=== PATIENT | male | born 1960 | race Caucasian/White ===

== ENCOUNTER 2024-10-13 22:43 | Emergency (ER) | payer OTHER, SELFPAY ==
[2024-10-13 22:48] VITALS: BP 121/84
[2024-10-13] MEDS: ZOFRAN 4 MG IV (23:37)
[2024-10-13] MEDS: MORPHINE SULFATE 4 MG IV (23:37)
[2024-10-13 23:38] VITALS: BMI 27.9
--- NOTE | 2024-10-13 23:52 | ED.GENMED ---
History of Present Illness
<SOFÍA Sousa - Last Filed: 10/14/24 03:22>
General
Chief Complaint: Musculo-Skeletal Complaint
Source: patient
Time Seen by Provider: 10/13/24 23:11
Nursing documentation reviewed up to this point in time: agreed with
History of Present Illness
History of Present Illness:
Pt is a 64 yo M with a history of a-fib who presents to the emergency department with left shoulder pain after a fall onto the tile floor this evening. Pt states that he was walking to let the dog out and fell onto his left side and landed on his
left shoulder. He states that he 'hit everything' on his body when he fell. Pt reports that he was on the floor for about 30 minutes before he was helped up. He states that he wet himself while he was on the floor waiting for help. Pt states that he
was helped and lifted up, and that he was able to walk to the car to come to the ED. He reports that the left shoulder pain is extreme. He denies LOC, dizziness, headache, N/V, changes in vision.
Patient's states that the patient currently takes baby aspirin, denies taking any blood thinners. Patient's states that the patient drank wine today.
Past History
<SOFÍA Sousa - Last Filed: 10/14/24 03:22>
Past History
ED Past Medical History: Other (Back pain) and Other (Previous splenic injury and hand surgery for,.)
Patient has exhibited threatening behavior?: No
Social History
Tobacco: Non-smoker
Alcohol: None
Drug: None
Personal:
Living: with family
Employment: Employed
Family History
Family History: Other
Review of Systems
<SOFÍA Sousa - Last Filed: 10/14/24 03:22>
Review of Systems
Allergies reviewed?: Yes
Constitutional: Reports no symptoms
Respiratory: Reports no symptoms
Cardiac: Reports no symptoms
ABD/GI: Reports no symptoms
Musculoskeletal: Reports joint pain
Neurological: Reports no symptoms
Phy Exam
<Allie Sosa STAN - Last Filed: 10/14/24 03:22>
General Physical Exam
General Presentation: moderate distress
General age: appears stated age
General Skin: warm
General Habitus: normal
General Mental: angry
General Hydration: appears well hydrated
Cardiovascular Exam
Cardiovascular Exam: regular rate/rhythm
Pulmonary Exam
Pulmonary Exam: lungs clear
Neurological Exam
Neurological Exam: alert, oriented x3 and speech normal
Musculoskeletal Exam
Musculoskeletal Exam: other (left shoulder pain, limited ROM of left shoulder)
Skin Exam
Skin Exam: other (Left anterior forearm abrasion )
Course
<Allie Sosa [facility] - Last Filed: 10/14/24 03:22>
Orders/Labs/Results
Orders:
Orders
10/13/24 22:56
CR Shoulder - Left Min 2 View* Urgent
Reason For Exam: fall, c/f dislocation
10/13/24 23:25
Morphine Sulfate 4 mg IV NOW STA
Ondansetron Injectable [Zofran] 4 mg IV NOW STA
10/14/24 00:32
HYDROmorphone [Dilaudid] 0.5 mg IV NOW STA
10/14/24 00:42
Propofol [Diprivan] 20 ml .ROUTE .STK-MED
10/14/24 01:11
CR Shoulder - Left 1 View Urgent
Reason For Exam: post reduction
10/14/24 02:09
CR Shoulder - Left 1 View Urgent
Reason For Exam: continued shoulder pain post reduction
Vital Signs
Initial and Last Documented VS:
Initial Vital Signs
Temp Pulse Resp BP Pulse Ox
98.0 F 100 20 121/84 99
10/13/24 22:48 10/13/24 22:48 10/13/24 22:48 10/13/24 22:48 10/13/24 22:48
Last Documented Vital Signs
Temp Pulse Resp BP Pulse Ox
97.9 F 84 18 109/80 95
10/14/24 01:50 10/14/24 01:50 10/14/24 01:50 10/14/24 01:50 10/14/24 01:50
<Amado Bender, DO - Last Filed: 10/14/24 02:39>
Orders/Labs/Results
Orders:
Orders
10/13/24 22:56
CR Shoulder - Left Min 2 View* Urgent
Reason For Exam: fall, c/f dislocation
10/13/24 23:25
Morphine Sulfate 4 mg IV NOW STA
Ondansetron Injectable [Zofran] 4 mg IV NOW STA
10/14/24 00:32
HYDROmorphone [Dilaudid] 0.5 mg IV NOW STA
10/14/24 00:42
Propofol [Diprivan] 20 ml .ROUTE .STK-MED
10/14/24 01:11
CR Shoulder - Left 1 View Urgent
Reason For Exam: post reduction
10/14/24 02:09
CR Shoulder - Left 1 View Urgent
Reason For Exam: continued shoulder pain post reduction
Vital Signs
Initial and Last Documented VS:
Initial Vital Signs
Temp Pulse Resp BP Pulse Ox
98.0 F 100 20 121/84 99
10/13/24 22:48 10/13/24 22:48 10/13/24 22:48 10/13/24 22:48 10/13/24 22:48
Last Documented Vital Signs
Temp Pulse Resp BP Pulse Ox
97.9 F 84 18 109/80 95
10/14/24 01:50 10/14/24 01:50 10/14/24 01:50 10/14/24 01:50 10/14/24 01:50
Procedures
<DO Rafa Harkins Last Filed: 10/14/24 02:39>
Moderate Sedation
ASA Risk Score: Class II
Chart and allergies reviewed: Yes
Consent for anesthesia obtained: Yes
Time out completed (validating right patient & procedure): Yes
Moderate Sedation Start Time(when first medication is given): 01:05
History of difficult intubation: No
Airway free of obstruction: Yes
Patient has a gag reflex: Yes
Patient is able to open mouth: Yes
Patient has no dentures: Yes
Patient has no loose teeth: Yes
Medication administered by Provider during Moderate Sedation: IV Propofol (mg)
Total dose administered: 75
Time drug administered: 01:05
Moderate Sedation Procedure End Time: 01:20
Joint/Fracture Reduction
Left Shoulder:
Indication for procedure:: dislocation
Procedure completed by: myself
Consent form signed: Yes
Joint reduced: with anesthesia sedation
Anesthesia/sedation: Moderate sedation
Injury was: closed
Further treatement: needs re-check only
Post reduction exam: stable
Capillary Refill: normal
Normal distal neurovascular exam?: Yes
Additional information:
Patient tolerated procedure well with no immediate adverse effects.
<SOFÍA Sousa - Last Filed: 10/14/24 03:22>
MDM/Problems Addressed
Differential Diagnosis Includes:
Humerus fracture, humeral dislocation
<SOFÍA Sousa - Last Filed: 10/14/24 03:22>
*Critical Care Note
Total Time (30-74mins, 75-104mins- exclusive of procedures): Not Applicable
<DO Rafa Harkins Filed: 10/14/24 02:39>
Update Note
Update Note:
10/14/2024 0137 AM: Patient is awake alert and oriented at this time. We did readdress the CT of the head. He is refusing. I am concerned because he has a large hematoma on the side of his head. Patient is coherent and able to understand the
risks and benefits of refusal. I asked him to sign a procedure refusal form and he agreed. This is all done in the presence of and son.
10/14/2024 0210 AM signed consent form regarding refusal of CT scan of the head. absolutely refused. Patient still complaining of left shoulder pain. Will re-xray the shoulder formally.
ED Attending Note
<SOFÍA oSusa - Last Filed: 10/14/24 03:22>
-
Portions of this chart may have been created with voice recognition software.� Occasional wrong word or��sound alike� substitutions may have occurred due to the inherent limitations of voice recognition software.
<Amado Bender DO - Last Filed: 10/14/24 02:39>
ED Attending Note
Patient seen and examined by attending physician: Yes
I performed the substantive portion of visit, reviewed & personally made and approve the management plan that is documented in note by myself or SREEKANTH.: Yes
ED Attending Note:
64-year-old male presents to the emergency department with left shoulder dislocation. Patient slipped and fell on a tile floor hitting his head and injuring his left shoulder. Patient states that he laid on the floor for approximately 30 minutes
before he was helped up. Patient did admit to drinking alcohol. Patient refused CAT scan stating that his shoulder hurt too much.
Discharge Plan
Departure
Patient Disposition: Home (Routine Discharge)
Date of Disposition: 10/14/24
Time of Disposition: 02:39
Patient with high blood pressure during this ER visit?: Yes
Discharge Problem:
Dislocated shoulder, Head injury, Acromioclavicular joint separation
Instructions: Shoulder Dislocation (DC), shoulder, How to Use a Shoulder Sling, BLOOD PRESSURE
Prescriptions:
New
oxycodone-acetaminophen [Percocet] 5-325 mg tablet
1 tab PO Q8H PRN (Reason: Pain) Qty: 10 0RF
No Action
Vitamin C
1 tab PO DAILY
Vitamin D
1 tab PO DAILY
rivaroxaban [Xarelto] 20 MG tablet
20 mg PO QPM Qty: 14 0RF
diltiazem HCl [Cardizem CD] 120 MG capsule,extended release 24hr
120 mg PO DAILY Qty: 14 0RF
colchicine 0.6 mg capsule
0.6 mg PO DAILY Qty: 5 0RF
prednisone 10 mg tablet
10 mg PO DAILY Qty: 30 0RF
acetaminophen-codeine 1 TABLET tablet
1 - 2 tab PO Q4HPRN PRN (Reason: Mod-severe pain) Qty: 30 0RF
Referrals:
Seamus Rivera MD [Family Provider] -
Alfa Osorio MD [Active] - Next open appointment
Activity Restrictions/Additional Instructions:
It was a pleasure meeting you and taking part in your care. We hope for your continued healing and wellness.
Please read discharge instructions in their entirety. However, they are for general education and may not describe your exact diagnosis at discharge. Information on your ER visit and medical conditions were discussed with you along with appropriate
follow up information...
If indicated, please take your medications as instructed and indicated on discharge paperwork.
Please schedule a follow up appointment as directed. Call to schedule an appointment
Please return to the emergency department with ANY change in, persisting, or worsening of symptoms. If any of your symptoms do not improve, or persist, or become more severe within 6-12 hours, please return to the emergency department for further
care.
Please return to the emergency department if you develop a headache, neck pain/stiffness, fever greater than 100.4F, chest pain, shortness of breath, persistent nausea, vomiting, slurred speech, difficulty walking, numbness/tingling, weakness, signs
of infection or any other symptoms that are worrisome to you.
If you have any questions or concerns please do not hesitate to call the Hospital at
Interventions
Interventions:
*General Assessment Last Done: 10/14/24 00:25
*Neglect/Abuse Screening Last Done: 10/13/24 22:48
ED- Fall Risk Assessment Last Done: 10/14/24 02:56
*ED COVID-19 Vaccine History Last Done: 10/13/24 22:48
*Nursing Disposition Last Done: 10/14/24 02:56
ED-Musculoskeletal Assessment Last Done: 10/14/24 00:25
Discharge Date and Time
Discharge Date/Time: 10/14/24 02:56
Print Language: KHMER
[2024-10-14] VITALS (9 sets, daily range): BP systolic 93–109; BP diastolic 59–88
[2024-10-14] MEDS: DILAUDID 0.5 MG IV (00:35)
== END 2024-10-14 02:56 | disposition home or self-care (01) ==
LOC: EMR 22:43
PROVIDERS: EMERGENCY PHYSICIAN Student in an Organized Health Care Education/Training Program; FAMILY PHYSICIAN Internal Medicine
DX: S43.015A Anterior dislocation of left humerus, initial encounter (principal); S09.90XA Unspecified injury of head, initial encounter; W19.XXXA Unspecified fall, initial encounter
CPT/HCPCS: 99283; 23650; 99152; 73020; 73030

== ENCOUNTER → 2024-12-21 11:07 | Outpatient (REF) | payer OTHER, SELFPAY | LOC: HWRAD 11:07 | PROVIDERS: ATTENDING PHYSICIAN Dermatology; FAMILY PHYSICIAN Nurse Practitioner Family; REFERRING PHYSICIAN Specialist | DX: N50.812 Left testicular pain (principal); D48.5 Neoplasm of uncertain behavior of skin; D89.89 Other specified disorders involving the immune mechanism, not elsewhere classified | CPT/HCPCS: 71046; 76870; 93976 ==

== ENCOUNTER 2025-01-02 15:28 | Emergency (ER) | payer OTHER, SELFPAY ==
[2025-01-02 15:46] VITALS: BP 122/79
[2025-01-02 16:26] LABS: ALT (SGPT) 43 U/L (0-50); AST (SGOT) 49 U/L (17-59); Albumin 4.4 g/dl (3.5-5.0); Alkaline Phosphatase 79 U/L (38-126); Blood Urea Nitrogen 17 mg/dl (9-20); Calcium 9.6 mg/dl (8.4-10.2); Carbon Dioxide 28 mmol/L (22-30); Chloride 102 mmol/L (98-107); Glucose 126 mg/dl (70-99); Potassium 5.1 mmol/L (3.5-5.1); Sodium 138 mmol/L (135-145); Total Bilirubin 0.8 mg/dl (0.2-1.3); Total Protein 6.2 g/dl (6.3-8.2); eGFR > 60.00
[2025-01-02 16:28] LABS: % Basophils 1.6 % (0-2); % Eosinophils 0.8 % (0-6); % Immature Granulocytes 2.5 % (0-0.5); % Lymphocytes 17.2 % (20.5-51.1); % Monocytes 13.4 % (1.7-9.3); % Neutrophils 64.5 % (42.2-75.2); Absolute Basophils 0.1 10^3/uL (0-0.2); Absolute Immature Granulocytes 0.1 10^3/uL (0-0.05); Absolute Lymphocytes 0.6 10^3/uL (1.2-3.4); Absolute Monocytes 0.5 10^3/uL (0.1-0.6); Absolute Neutrophils 2.4 10^3/uL (1.4-6.5); Hematocrit 33.5 % (39.0-52.0); Hemoglobin 10.9 g/dL (13.0-18.0); Mean Corp Hgb Conc. 32.5 g/dL (33.0-37.0); Mean Corpuscular Hgb 35.4 pg (27.0-31.0); Mean Corpuscular Volume 108.8 fL (80.0-94.0); Mean Platelet Volume 12.4 fL (7.4-10.4); Nucleated Red Blood Cells % 0 % (-); Platelet Count 116 10^3/uL (130-400); Red Blood Cell Count 3.08 10^6/uL (4.70-6.10); Red Cell Dist. Width 16.6 % (11.5-14.5); White Blood Cell Count 3.7 10^3/uL (4.8-10.8)
[2025-01-02 16:29] LABS: Hypochromasia Moderate; Normal RBC Morphology No; Stomatocytes 1+
[2025-01-02] MEDS: PERCOCET 5/325 1 TABLET PO (17:43)
--- NOTE | 2025-01-02 17:46 | ED.GENMED ---
History of Present Illness
General
Chief Complaint: Male Genito-Urinary Symptoms
Source: patient
Time Seen by Provider: 01/02/25 17:32
History of Present Illness
History of Present Illness:
64-year-old male with past medical history of atrial fibrillation presenting to the emergency department for evaluation of worsening pain to bilateral testes/scrotum, was seen as an outpatient 1 week ago and had an ultrasound done which showed
bilateral hydroceles, no change to symptoms today but noting persistent pain. Patient attempted to follow-up with urology but was not able to be seen until April and was advised by primary care provider to come back to the emergency department today
for further evaluation. Other than the pain patient denies any symptoms including urinary frequency, urgency, dysuria, hematuria, back or flank pain. Denies any other history of similar. No other concerns.
Past History
Past History
ED Past Medical History: Other (Back pain) and Other (Previous splenic injury and hand surgery for,.)
Patient has exhibited threatening behavior?: No
Social History
Tobacco: Non-smoker
Alcohol: None
Drug: None
Personal:
Living: with family
Employment: Employed
Family History
Family History: Other
Review of Systems
Review of Systems
All Other Systems: ROS reviewed and negative except as documented in HPI and ROS
Phy Exam
Physical Exam
Physical Exam:
GENERAL: Alert , in no apparent distress
EYE: conjunctiva clear
Head: Normocephalic atraumatic
NECK: Supple,
ENT: mmm.
LUNGS: no acute respiratory distress
GENITOURINARY: Moderate to large scrotal edema bilaterally. No discrete tenderness over the testicle. No overlying erythema. No lesions or sores. Positive cremasteric reflex bilateral. No urethral discharge
NEUROLOGICAL: Alert and oriented
SKIN: Warm and dry, skin intact.
MUSCULOSKELETAL: well perfused.
PSYCH: Normal and appropriate interaction.
Scores
Heart Failure Risk
Heart Failure Risk Score: Not Applicable
Heart Score for Chest Pain Patients
STEMI patient?: Not applicable
Withdrawal Assessment of Alcohol
Withdrawal Assessment Completed?: Not applicable
Course
Orders/Labs/Results
Orders:
Orders
01/02/25 15:51
Scrotum US [US Scrotum] Urgent
Comment: increasing in severity
Reason For Exam: left testicle pain and swelling for past 2 weeks
01/02/25 15:59
Complete Blood Count/With Diff Urgent
Comprehensive Metabolic Panel Urgent
01/02/25 17:37
Oxycodone/Acetaminophen [Percocet 5/325] 1 tablet PO NOW STA
01/02/25 17:40
Urinalysis Reflex To Culture Urgent
Date Specimen was Collected: 01/02/25
Time Specimen was Collected: 17:37
Abnormal Lab Results
01/02/25
15:59
WBC 3.7 L 10^3/uL
(4.8-10.8)
RBC 3.08 L 10^6/uL
(4.70-6.10)
Hgb 10.9 L g/dL
(13.0-18.0)
Hct 33.5 L %
(39.0-52.0)
MCV 108.8 H fL
(80.0-94.0)
MCH 35.4 H pg
(27.0-31.0)
MCHC 32.5 L g/dL
(33.0-37.0)
RDW 16.6 H %
(11.5-14.5)
Plt Count 116 L 10^3/uL
(130-400)
MPV 12.4 H fL
(7.4-10.4)
Abs Immat Gran (auto) 0.1 H 10^3/uL
(0-0.05)
Absolute Lymphs (auto) 0.6 L 10^3/uL
(1.2-3.4)
Immature Gran % 2.5 H %
(0-0.5)
Lymphocytes % 17.2 L %
(20.5-51.1)
Monocytes % 13.4 H %
(1.7-9.3)
Glucose 126 H mg/dl
(70-99)
Total Protein 6.2 L g/dl
(6.3-8.2)
01/02/25 15:59
01/02/25 15:59
Vital Signs
Initial and Last Documented VS:
Initial Vital Signs
Temp Pulse Resp BP Pulse Ox
97.6 F 114 18 122/79 100
01/02/25 15:46 01/02/25 15:46 01/02/25 15:46 01/02/25 15:46 01/02/25 15:46
Last Documented Vital Signs
Temp Pulse Resp BP Pulse Ox
97.6 F 99 16 135/96 97
01/02/25 15:46 01/02/25 18:20 01/02/25 18:20 01/02/25 18:20 01/02/25 18:20
MDM/Problems Addressed
Differential Diagnosis Includes:
Hydrocele versus varicocele, torsion, cellulitis, urinary tract infection, orchitis
MDM/Problems Addressed:
64-year-old male presenting the ER for evaluation of bilateral scrotal edema, recently diagnosed with bilateral hydroceles, unable to see urology until April. Recommended to come back to the ER this evening. Labs, urinalysis and scrotal ultrasound
ordered. Disposition pending. Will contact urology
*Radiology
Radiology exam reviewed: radiology read reviewed
*Pulse Oximetry
Patient hypoxic: no
*Critical Care Note
Total Time (30-74mins, 75-104mins- exclusive of procedures): Not Applicable
Patient Management
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
Escalation/DeEscalation of care consider admission/obs:
Case discussed with urology who states that they will have patient's provider contacted to try and expedite patient's outpatient visit. In the meantime we will prescribe patient pain medicine to take at home as needed. Return precautions
discussed. Stable for discharge home.
ED Attending Note
-
Portions of this chart may have been created with voice recognition software.� Occasional wrong word or��sound alike� substitutions may have occurred due to the inherent limitations of voice recognition software.
Discharge Plan
Departure
Patient Disposition: Home (Routine Discharge)
Date of Disposition: 01/02/25
Time of Disposition: 17:50
Patient with high blood pressure during this ER visit?: No
Discharge Problem:
Bilateral hydrocele
Instructions: Hydrocele/Varicocele (DC)
Prescriptions:
New
oxycodone-acetaminophen [Percocet] 5-325 mg tablet
1 tab PO Q6HPRN PRN (Reason: pain) Qty: 6 0RF
No Action
Vitamin C
1 tab PO DAILY
Vitamin D
1 tab PO DAILY
rivaroxaban [Xarelto] 20 MG tablet
20 mg PO QPM Qty: 14 0RF
diltiazem HCl [Cardizem CD] 120 MG capsule,extended release 24hr
120 mg PO DAILY Qty: 14 0RF
colchicine 0.6 mg capsule
0.6 mg PO DAILY Qty: 5 0RF
prednisone 10 mg tablet
10 mg PO DAILY Qty: 30 0RF
oxycodone-acetaminophen [Percocet] 5-325 mg tablet
1 tab PO Q8H PRN (Reason: Pain) Qty: 10 0RF
acetaminophen-codeine 1 TABLET tablet
1 - 2 tab PO Q4HPRN PRN (Reason: Mod-severe pain) Qty: 30 0RF
Interventions
Interventions:
*Risk Screen - Suicide Last Done: 01/02/25 17:16
*General Assessment Last Done: 01/02/25 17:16
*Neglect/Abuse Screening Last Done: 01/02/25 17:16
ED- Fall Risk Assessment Last Done: 01/02/25 18:20
*ED COVID-19 Vaccine History Last Done: 01/02/25 17:16
*Nursing Disposition Last Done: 01/02/25 18:20
ED-Male Genitourinary Assessment Last Done: 01/02/25 17:16
Discharge Date and Time
Discharge Date/Time: 01/02/25 18:26
Print Language: MALIAN
[2025-01-02 17:48] LABS: Urine Albumin Negative (Neg - Trace); Urine Bilirubin Negative (Negative); Urine Character Clear (Clear); Urine Color Yellow; Urine Glucose Negative (Negative); Urine Ketone Negative (Negative); Urine Leukocyte Negative (Negative); Urine Nitrite Negative (Negative); Urine Occult Blood Negative (Negative); Urine Urobilinogen Negative (Neg - 1+)
[2025-01-02 18:20] VITALS: BP 135/96
== END 2025-01-02 18:26 | disposition home or self-care (01) ==
LOC: EMR 15:28
PROVIDERS: Physician Assistant Medical; EMERGENCY PHYSICIAN Emergency Medicine; FAMILY PHYSICIAN Nurse Practitioner Family
DX: N43.3 Hydrocele, unspecified (principal); I48.91 Unspecified atrial fibrillation
CPT/HCPCS: 99284; 76870; 80053; 81003; 85025; 93976

== ENCOUNTER → 2025-02-16 14:02 | Outpatient (REF) | payer OTHER, SELFPAY | LOC: HWRAD 14:02 | PROVIDERS: FAMILY PHYSICIAN Nurse Practitioner Family | DX: M16.12 Unilateral primary osteoarthritis, left hip (principal); M25.552 Pain in left hip; Z47.1 Aftercare following joint replacement surgery; Z96.642 Presence of left artificial hip joint | CPT/HCPCS: 73700 ==

== ENCOUNTER 2025-06-08 22:50 | Inpatient (IN) | payer OTHER, SELFPAY ==
[2025-06-08] VITALS (8 sets, daily range): BP systolic 101–131; BP diastolic 57–87
[2025-06-08 12:15] LABS: INR 1.11; PT 14.8 Sec (11.4-14.6)
[2025-06-08 12:16] LABS: APTT 34.1 Sec (23.4-35.0)
[2025-06-08 12:17] LABS: Hematocrit 31.2 % (39.0-52.0); Hemoglobin 10.0 g/dL (13.0-18.0); Mean Corp Hgb Conc. 32.1 g/dL (33.0-37.0); Mean Corpuscular Volume 98.4 fL (80.0-94.0); Nucleated Red Blood Cells % 0 % (-); Red Cell Dist. Width 23.1 % (11.5-14.5)
[2025-06-08 12:21] LABS: ALT (SGPT) 16 U/L (0-50); AST (SGOT) 25 U/L (17-59); Albumin 4.2 g/dl (3.5-5.0); Alkaline Phosphatase 60 U/L (38-126); Blood Urea Nitrogen 12 mg/dl (9-20); Calcium 9.4 mg/dl (8.4-10.2); Carbon Dioxide 22 mmol/L (22-30); Chloride 105 mmol/L (98-107); Glucose 101 mg/dl (70-99); Potassium 4.4 mmol/L (3.5-5.1); Sodium 136 mmol/L (135-145); Total Protein 6.3 g/dl (6.3-8.2); eGFR > 60.00
[2025-06-08 12:29] LABS: Troponin I 0.018 ng/ml
[2025-06-08 12:34] LABS: Platelet Count 84 10^3/uL (130-400)
--- NOTE | 2025-06-08 13:11 | ED.GENMED ---
History of Present Illness
General
Chief Complaint: Musculo-Skeletal Complaint
Time Seen by Provider: 06/08/25 11:12
History of Present Illness
History of Present Illness:
65-year-old male presents to the ER for evaluation of generalized weakness, fatigue, low back pain and incontinence since Thursday. Patient states that he had been feeling well over the weekend. They had traveled to help a family member. He was
loading up his truck when he felt so profoundly weak he felt as though he was having trouble with his strength to move his arms to load the truck. He states that on his way home he had 2 episodes of diarrhea and subsequent emesis. He states that
since this time he has been feeling feverish and severely fatigued. He states that he has mild hip discomfort status post complicated hip surgery earlier this year-he had hip replacement and subsequent infection causing need for revision. He
states that on Thursday night he had a lack of awareness that he needed to void and had several episodes of incontinence. He states that he is able to have awareness of his need to void if he is laying supine, however he has no control of his
ability to empty his bladder and has had to have a bucket at his bedside. He states he has continued to have occasional loose stools. He also had a feeling of chest heaviness earlier today
Past History
Past History
ED Past Medical History: Other (Back pain) and Other (Previous splenic injury and hand surgery for,.)
Patient has exhibited threatening behavior?: No
Social History
Tobacco: Non-smoker
Alcohol: None
Drug: None
Personal:
Living: with family
Employment: Employed
Family History
Family History: Other
Phy Exam
Physical Exam
Physical Exam:
Patient is awake, alert, mild conversational dyspnea, appears older than stated age, mucous membranes moist, conjunctiva pink, patient has a diffuse macular nonblanching fine rash with areas of confluence across his chest and back, heart irregularly
irregular rate and rhythm without murmur, lungs are clear to auscultation without wheezes rales or rhonchi, abdomen is soft and nontender without murmur, lungs are clear to auscultation without wheezes rales or rhonchi, abdomen is soft and
nontender, rectal exam reveals intact perianal sensation with good rectal tone, intact sensation to light touch symmetric bilateral lower extremities, moving all extremities symmetrically without focal deficit although patient reports feeling
fatigued with movement of all extremities, GCS is 15
Sepsis
Sepsis Screening
Sepsis Assessment: Sepsis
Sepsis Screen
Sepsis Screen: Sepsis
Date: 06/08/25
Time: 15:16
Course
Orders/Labs/Results
Orders:
Orders
06/08/25 11:31
Bladder Scan- Treatment ONCE
06/08/25 11:38
CR Chest - 2 Views Urgent
Comment:
Reason For Exam: chest pain
06/08/25 11:45
Electrocardiogram (*1) Q3H
Reason for Study: Chest Pain
EKG- Treatment ONCE
06/08/25 11:48
Complete Blood Count/With Diff Urgent
Comprehensive Metabolic Panel Urgent
Lactic Acid Q4H
Comment: CANCEL 2nd LACTIC ACID IF 1st LACTIC ACID IS LESS THAN 2
PTT Urgent
Prothrombin Time Urgent
Troponin I Q3H
Blood Culture Q30M
JAJA Source: Blood/Venous
Specimen Description:
Blood Culture Q30M
JAJA Source: Blood/Venous
Specimen Description:
06/08/25 12:28
MR Lumbar W/o & With Contrast Urgent
Comment:
Reason For Exam: back pain, r/o epidural abscess
Recent pill cam endoscopy?: No
06/08/25 13:34
Urinalysis Reflex To Culture Urgent
Date Specimen was Collected: 06/08/25
Time Specimen was Collected: 13:34
Urine Microscopic Reflex Cult Urgent
Urine Culture Urgent
JAJA Source: U
Specimen Description:
Obtained by: Random
Date Specimen was Collected: 06/08/25
Time Specimen was Collected: 13:34
06/08/25 13:56
CT Chest/abd/pel Wo Iv Cont Urgent
Comment:
Reason For Exam: fever, h/o severe contrast allergy
06/08/25 14:45
Electrocardiogram (*1) Q3H
Reason for Study: Chest Pain
Troponin I Q3H
06/08/25 14:49
Metoprolol [Lopressor] 5 mg IV NOW STA
06/08/25 14:53
0.9% Sodium Chloride 1000 ml [Nss] 1,000 ml IV BOLUS
06/08/25 15:13
Aztreonam [Azactam] 2,000 mg IV NOW STA
06/08/25 15:15
Lactic Acid Q4H
Comment: CANCEL 2nd LACTIC ACID IF 1st LACTIC ACID IS LESS THAN 2
Abnormal Lab Results
06/08/25 06/08/25
11:48 13:34
WBC 2.6 L 10^3/uL
(4.8-10.8)
RBC 3.17 L 10^6/uL
(4.70-6.10)
Hgb 10.0 L g/dL
(13.0-18.0)
Hct 31.2 L %
(39.0-52.0)
MCV 98.4 H fL
(80.0-94.0)
MCH 31.5 H pg
(27.0-31.0)
MCHC 32.1 L g/dL
(33.0-37.0)
RDW 23.1 H %
(11.5-14.5)
Plt Count 84 L 10^3/uL
(130-400)
Absolute Lymphs (auto) 0.3 L 10^3/uL
(1.2-3.4)
Immature Gran % 1.2 H %
(0-0.5)
Lymphocytes % 13.3 L %
(20.5-51.1)
Monocytes % 12.5 H %
(1.7-9.3)
PT 14.8 H Sec
(11.4-14.6)
Glucose 101 H mg/dl
(70-99)
Total Bilirubin 1.5 H mg/dl
(0.2-1.3)
Ur Occult Blood Reflex 1+ A
(Negative)
Urine Nitrite (Reflex) Positive A
(Negative)
Leukocyte Esterase Rfl 3+ A
(Negative)
Urine RBC 3-6 A /HPF
(0-2)
Urine WBC (Reflex) 16-20 A /HPF
(0-5)
Urine Bacteria (Reflex) Moderate A
(Negative)
Urine Albumin (Reflex) 2+ A
(Neg - Trace)
06/08/25 11:48
06/08/25 11:48
CBC reveals low white blood count, 2.6 today had been 3.7 in December. Hemoglobin also low at 10, similar to prior value. Platelet count 84, . Kidney function preserved. Electrolytes within normal limits. Troponin just above normal at 0.018.
Will repeat.
Vital Signs
Initial and Last Documented VS:
Initial Vital Signs
Temp Pulse Resp BP Pulse Ox
97.8 F 131 20 127/87 99
06/08/25 10:57 06/08/25 10:57 06/08/25 10:57 06/08/25 10:57 06/08/25 10:57
Last Documented Vital Signs
Temp Pulse Resp BP Pulse Ox
97.8 F 107 22 108/67 98
06/08/25 10:57 06/08/25 15:01 06/08/25 15:01 06/08/25 15:01 06/08/25 15:01
MDM/Problems Addressed
Differential Diagnosis Includes:
Differential diagnosis to consider but not limited to epidural abscess, bacteremia, UTI along with other etiologies considered
Chronic conditions affecting care:
Myelodysplastic syndrome nos (pt reports that 2 of his cell lines are always low), afib on chronic anticoagulation, h/o septic arthritis s/p hip repair
*Radiology
Radiology exam reviewed: radiology read reviewed (Chest x-ray within normal limits)
*Pulse Oximetry
SaO2: 99
Oxygen Mode of Delivery: Room air
Patient hypoxic: no
*EKG
Interpreted by ED Provider?: Yes (I independently viewed and interpreted twelve-lead EKG showing atrial fibrillation with a controlled rate, leftward axis, incomplete right bundle branch block, no ST elevation, this is an abnormal tracing similar to
prior from 09/29/2014 with exception of rate)
*Hat Liner Interpretation
Rate: normal
Interpretation: abnormal
Rhythm: a-fib
*Critical Care Note
Total Time (30-74mins, 75-104mins- exclusive of procedures): 30 minutes
comment:
30 minutes of critical care time utilized in managing this medically complex patient
Update Note
Update Note:
After my initial assessment, given patient's history of severe IV contrast allergy along with clinical concern for possible epidural infection as etiology of symptoms given complicated orthopedic course within the past year, I reviewed full patient
presentation with on-call radiologist. Patient is approved for MRI of the lumbar spine with and without IV contrast.
update 1350-patient resting comfortably, feels well. Declining any need for analgesia at the current time.
Patient had elevated heart rate-gambling monitor shows A-fib with RVR up to 120s. Blood pressure stable. Patient did take his morning metoprolol. Additional IV metoprolol ordered. By the time nurse went to administer, patient's heart rate was
back in the 90s. Will hold metoprolol. IV fluids ordered. IV aztreonam ordered for urinalysis consistent with UTI. Awaiting CT and MRI for disposition. Full patient presentation reviewed with Dr Campos at end of my shift pending results for
admission
ED Attending Note
-
Portions of this chart may have been created with voice recognition software.� Occasional wrong word or��sound alike� substitutions may have occurred due to the inherent limitations of voice recognition software.
Discharge Plan
Departure
Discharge Problem:
Atrial fibrillation, Urinary tract infection, Weakness
Prescriptions:
No Action
Vitamin C
1 tab PO DAILY
Vitamin D
1 tab PO DAILY
rivaroxaban [Xarelto] 20 MG tablet
20 mg PO QPM Qty: 14 0RF
diltiazem HCl [Cardizem CD] 120 MG capsule,extended release 24hr
120 mg PO DAILY Qty: 14 0RF
colchicine 0.6 mg capsule
0.6 mg PO DAILY Qty: 5 0RF
prednisone 10 mg tablet
10 mg PO DAILY Qty: 30 0RF
oxycodone-acetaminophen [Percocet] 5-325 mg tablet
1 tab PO Q8H PRN (Reason: Pain) Qty: 10 0RF
oxycodone-acetaminophen [Percocet] 5-325 mg tablet
1 tab PO Q6HPRN PRN (Reason: pain) Qty: 6 0RF
acetaminophen-codeine 1 TABLET tablet
1 - 2 tab PO Q4HPRN PRN (Reason: Mod-severe pain) Qty: 30 0RF
Referrals:
Yvon Lima CRNP [Family Provider, Family Practice]
Interventions
Interventions:
*Risk Screen - Suicide Last Done: 06/08/25 10:57
*Neglect/Abuse Screening Last Done: 06/08/25 10:57
*ED- Fall Risk Assessment Last Done: 06/08/25 10:57
ED-Musculoskeletal Assessment Last Done: 06/08/25 12:52
Discharge Date and Time
Print Language: MEXICAN
[2025-06-08 13:46] LABS: Urine Character Slightly Cloudy (Clear)
[2025-06-08 14:13] LABS: Urine White Cell 16-20 /HPF (0-5)
[2025-06-08] MEDS: NSS 1000 IV ×2 (15:47→23:16)
[2025-06-08] MEDS: AZACTAM 2000 MG IV (15:48)
[2025-06-08] MEDS: LOPRESSOR 5 MG IV ×2 (20:14→22:44)
--- NOTE | 2025-06-08 22:11 | HPS.HSE ---
Family Physician
-
Family Physician: YARI Sinha
Chief Complaint
-
weakness
History of Present Illness
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
weakness. Patient recently traveled to [place] and had eaten out at several restaurants. No sick contacts.
He states that he had blood work last week showing worsening anemia, leukopenia and thrombocytopenia attributed to Rinvoq. He was told to stop taking Rinvoq and instead take another medication for granulomatous dermatitis which he started over the
weekend. However he continues to have persistent pancytopenia and he was told to stop taking this new medication. He does not remember the name of the medication.
Over the past several days he has been having severe weakness and fatigue, generalized abdominal pain. He had some chest heaviness. He was loading up his truck and he felt profoundly weak and was having trouble moving his arms. He had several
episodes of diarrhea and vomiting which are watery without blood. He did not have any fever. He has been having multiple episodes of urinary incontinence he cannot feel that he is urinating.
He has history of osteoarthritis status post hip surgery in December complicated by anaphylaxis to attribute to preoperative prophylactic antibiotic. After the surgery he had several dislocations with the hip joint was too small and he had
revision. Revision was complicated by bleeding wound requiring blood transfusions. Wound was opened up and biopsies were performed showing Staphylococcus infection of the dermis but not involving the bone. Treated with antibiotics with
resolution. He denies any bleeding or discharge or pain of the left hip joint at this time.
He drinks alcohol occasionally. Denies smoking.
Medical History
Past Medical History
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
Past Surgical History: Reports Orthopedic
Social History
Tobacco: Non-smoker
Alcohol: Occasional
Drug: None
Family History
Family History: Not pertinent
Allergies / Home Medications
Allergies reflects when Allergies were last updated in [employer].
Home Medications with original date entered in [employer]
Allergy/Medication List:
Allergies
Allergy/AdvReac Type Severity Reaction Status Date / Time
cephalexin Allergy Severe Anaphylaxis Verified 06/08/25 11:34
levofloxacin (From Levaquin) Allergy Intermediate Unknown Verified 06/08/25 11:35
adhesive Allergy TAPE-RASH Verified 06/08/25 11:00
Iodinated Contrast Media Allergy HEART STOPS Verified 06/08/25 11:00
(Iodinated Contrast Media -
IV Dye)
iodine (Iodine) Allergy HEART Verified 06/08/25 11:00
STOPS FROM
IVP
Latex, Natural Rubber Allergy Unknown Verified 06/08/25 11:00
APRICOTS Allergy Hives Uncoded 06/08/25 11:00
Home Medications
acetaminophen 500 mg tablet (Tylenol Extra Strength) 1,000 mg PO BID@1200,0000 06/08/25
aspirin 81 mg tablet,delayed release 81 mg PO BID@1200,0000 06/08/25
hydroxychloroquine 200 mg tablet 0 mg PO .SEE BELOW 06/08/25
ibuprofen 200 mg tablet (Advil) 400 mg PO BID@1200,0000 06/08/25
metoprolol tartrate 25 mg tablet 25 mg PO BID@1200,0000 06/08/25
upadacitinib 15 mg tablet,extended release 24 hr (Rinvoq) 15 mg PO BID@1200,0000 06/08/25
Review of Systems
-
History Source: Patient
A 12 point ROS was completed and negative except as noted: Yes
Constitutional: Reports No Symptoms
EENT: Reports No Symptoms
Respiratory: Reports No Symptoms
Cardiac: Reports No Symptoms
Abdomen/GI: Reports See HPI
: Reports See HPI
Musculoskeletal: Reports No Symptoms
Skin: Reports No Symptoms
Neurological: Reports No Symptoms
Endocrine: Reports No Symptoms
Hematologic/Lymphatic: Reports No Symptoms
Psych: Reports No Symptoms
Physical Exam
Vital Signs
Vital Signs
Temp Pulse Resp BP Pulse Ox
97.8 F 92 13 131/82 98
06/08/25 10:57 06/08/25 21:15 06/08/25 21:15 06/08/25 20:14 06/08/25 15:01
Physical Exam
General: Well Developed, Well Nourished and No Apparent Distress
HEENT: NormoCephalic, Moist mucous membranes and Atraumatic
Respiratory: Clear
Cardiac: S1/S2 and Regular Rhythm; No Murmur or Rub
GI: Soft, Non Tender, Non Distended and Normal Bowel Sounds; No Organomegaly
Rectal: Deferred by Provider
Musculoskeletal: No Clubbing, No Cyanosis and No Edema
Skin: No Rash
Neuro: Nonfocal/grossly intact
Laboratory Results
-
06/08/25 11:48
06/08/25 11:48
Laboratory Results
PT 14.8 Sec (11.4-14.6) H 06/08/25 11:48
INR 1.11 06/08/25 11:48
APTT 34.1 Sec (23.4-35.0) 06/08/25 11:48
Lactic Acid Cancelled 06/08/25 15:15
Total Bilirubin 1.5 mg/dl (0.2-1.3) H 06/08/25 11:48
AST 25 U/L (17-59) 06/08/25 11:48
ALT 16 U/L (0-50) 06/08/25 11:48
Alkaline Phosphatase 60 U/L (38-126) 06/08/25 11:48
Troponin I 0.018 ng/ml 06/08/25 11:48
Data Reviewed
-
Lab Data: Labs Reviewed by me
Old Records: Reviewed
Impression/Plan
-
IMPRESSION:
PLAN:
# Sepsis (leukopenia, tachycardia)/urinary incontinence secondary to UTI/acute gastroenteritis in setting of immunocompromise status due to Rinvoq
- see individually below
# Urinary tract infection
- Urinalysis shows 16-20 WBC, plus leukocyte esterase, positive nitrates
- Check urine culture, blood cultures
-IV fluids
- aztreonam
- Bladder scan protocol
- MRI lumbar spine without evidence of osteomyelitis or discitis or cauda equina although there is spinal stenosis at L3-L4 and L4-L5
# Acute gastroenteritis
-IV fluids
- Check stool studies
- Clear liquid diet
# Fluid collection anterior to the left hip joint likely residual fluid collection from prior hip surgery and complications
# Hip surgery complicated by bleeding wound/staph infection of the wound
-Patient without any acute symptoms of the left hip joint
- CT chest abdomen pelvis shows fluid collection anterior to the left hip joint possibly abscess versus hematoma, mild bladder wall thickening, small pericardial effusion,
# Atrial fibrillation with RVR secondary to sepsis
- Metoprolol given with improvement in heart rate and Cardizem not required
- Continue aspirin
Chronic anemia/leukopenia
- Stable
Acute on chronic thrombocytopenia
- Relatively stable but worse secondary to sepsis
History of granulomatous dermatitis/psoriatic arthritis
- Rinvoq stopped and new immunotherapy started which was also discontinued due to pancytopenia
- Continue hydroxychloroquine
Full code
DVT prophylaxis�heparin
Regular diet
[2025-06-08 22:45] LABS: Troponin I 0.013 ng/ml
[2025-06-09] VITALS (14 sets, daily range): BP systolic 92–140; BP diastolic 56–91; BMI 30.8; BMI 28.1
[2025-06-09] MEDS: TYLENOL 1000 MG PO ×3 (00:08→23:42)
[2025-06-09] MEDS: MOTRIN 400 MG PO ×3 (00:09→23:42)
[2025-06-09] MEDS: LOPRESSOR 25 MG PO ×3 (00:09→23:36)
[2025-06-09] MEDS: ASPIR LOW (ENTERIC COATED) 81 MG PO ×3 (00:09→23:36)
[2025-06-09] MEDS: STERILE WATER FOR INJECTION 10 ML IV ×4 (00:44→23:36)
[2025-06-09] MEDS: AZACTAM 1000 MG IV ×4 (00:45→23:36)
[2025-06-09 06:34] LABS: Hematocrit 28.7 % (39.0-52.0); Hemoglobin 9.0 g/dL (13.0-18.0); Mean Corp Hgb Conc. 31.4 g/dL (33.0-37.0); Mean Corpuscular Volume 98.6 fL (80.0-94.0); Platelet Count 75 10^3/uL (130-400); Red Cell Dist. Width 23.1 % (11.5-14.5)
[2025-06-09 06:54] LABS: ALT (SGPT) 14 U/L (0-50); AST (SGOT) 22 U/L (17-59); Albumin 3.4 g/dl (3.5-5.0); Alkaline Phosphatase 52 U/L (38-126); Blood Urea Nitrogen 13 mg/dl (9-20); Calcium 8.7 mg/dl (8.4-10.2); Carbon Dioxide 24 mmol/L (22-30); Chloride 106 mmol/L (98-107); Estimated Creatinine Clearance > 125 ml/min; Glucose 84 mg/dl (70-99); Potassium 4.1 mmol/L (3.5-5.1); Sodium 136 mmol/L (135-145); Total Protein 5.5 g/dl (6.3-8.2); eGFR > 60.00
[2025-06-09 07:35] LABS: Normal RBC Morphology Yes; Platelets Checked Yes; Total Cells Counted 100
[2025-06-09 07:36] LABS: Absolute Neutrophils -Man Diff 0.8 10^3/uL (1.4-6.5)
[2025-06-09] MEDS: HEPARIN SC ×2 (10:30→20:14)
--- NOTE | 2025-06-09 13:45 | W.PN.HOSP.TC ---
Today's Communication/Plan
-
US left groin pending.
Assessment / Plan
Assessment / Plan
Impression:
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
associated diarrhea , vomiting and weakness. Patient recently traveled to [place] and had eaten out at several restaurants. No sick contacts.
Noted to have UTI, also CT abdomen pelvis shows evidence of fluid collection anterior left hip.
Assessment/plan:
Sepsis (leukopenia, tachycardia)/urinary incontinence secondary to UTI/acute gastroenteritis in setting of immunocompromise status due to Rinvoq
Rule out left anterior hip
- see individually below.
Fluid collection anterior to the left hip joint likely residual fluid collection from prior hip surgery and complications
Hip surgery complicated by bleeding wound/staph infection of the wound
-Patient without any acute symptoms of the left hip joint (has left groin pain secondary to transport to MRI)
- CT chest abdomen pelvis shows fluid collection anterior to the left hip joint possibly abscess versus hematoma, mild bladder wall thickening, small pericardial effusion,
Ordered ultrasound left groin.
Urinary tract infection
- Urinalysis shows 16-20 WBC, plus leukocyte esterase, positive nitrates
- Check urine culture, blood cultures
-IV fluids
- aztreonam
- Bladder scan protocol
- MRI lumbar spine without evidence of osteomyelitis or discitis or cauda equina although there is spinal stenosis at L3-L4 and L4-L5
# Acute gastroenteritis
-IV fluids
- Check stool studies
- Clear liquid diet --> will advance
Atrial fibrillation with RVR secondary to sepsis
- Metoprolol given with improvement in heart rate and Cardizem not required
- Continue aspirin
Pancytopenia
- Drug-induced: Stable
History of granulomatous dermatitis/psoriatic arthritis
- Rinvoq stopped and new immunotherapy started which was also discontinued due to pancytopenia
- Continue hydroxychloroquine
CODE STATUS: Full code
DVT prophylaxis: heparin
Diet: LRD
Disposition: US left groin pending.
Total time spent on today's encounter was 65 minutes which included time spent in counseling the patient/family regarding diagnosis and treatment plan as listed above, goals of care, and symptom management. Case was discussed with nursing staff,
specialists, and care coordinators/case management. All labs and imaging personally reviewed by me. Remainder the time spent in detailed review of previous records, lab data, imaging, and other medical provider documentation.
Anticipated Discharge: 24 - 48 hours
Subjective/Interval History
-
Date of Service: June 09, 2025
Patient overall improved.
Discussed positive urine culture with the patient.
Also discussed CT finding of fluid collection anterior to left hip abscess versus hematoma.
Ordered ultrasound left groin.
Objective Data
-
Labs:
Laboratory Results
06/09/25
05:31
WBC 1.7 L*
Hgb 9.0 L
Hct 28.7 L
Plt Count 75 L
Sodium 136
Potassium 4.1
Chloride 106
Carbon Dioxide 24
BUN 13
Creatinine 0.7
Glucose 84
Calcium 8.7
Total Bilirubin 0.8
AST 22
ALT 14
Alkaline Phosphatase 52
Vital Signs:
Vital Signs
Temp Pulse Resp BP Pulse Ox
97.8 F 82 14 125/81 98
06/08/25 10:57 06/09/25 06:00 06/09/25 06:00 06/09/25 04:00 06/08/25 15:01
I&O
06/08/25 06/09/25 06/10/25
06:59 06:59 06:59
Intake Total 700 / 700
Output Total 900 / 900
Balance -200 / -200
Physical Exam
-
General: Well Developed, Well Nourished, No Apparent Distress and Comfortable
HEENT: Normocephalic, Atraumatic, Moist Mucous Membranes, No Ptosis, PERRLA and Nose Appears Normal
Respiratory: Clear to Auscultation and Non Labored Respirations
Cardiac: Regular Rhythm and S1/S2
Breast: Deferred by me
GI: Soft, Nontender, Nondistended and Normal Bowel Sounds
Genito-urinary: No Costovertebral Tender
Musculoskeletal: No Clubbing, No Cyanosis and No Edema
Skin: Warm
Neuro: Awake, Alert, Oriented, AO x 3 and No Motor Deficits
Psych: Calm
Data Reviewed
-
Diagnostic Radiology: Image personally visualized and interpreted and Report Reviewed by me
CT Scan: Image personally visualized and interpreted and Report Reviewed by me
Ultrasound: Image personally visualized and interpreted and Report Reviewed by me
MRI: Image personally visualized and interpreted and Report Reviewed by me
Medical Tests (Nuc Med, Echo etc): Image personally visualized and interpreted and Report Reviewed by me
Labs: Labs Reviewed by me
Old Records: Reviewed
--- NOTE | 2025-06-09 15:50 | PTCARENOTE ---
Received patient at 1550 from ED. Patient AAOx3, a bit anxious and easily agitated. Patient ambulated from stretcher to bed with his own rollator. Patient does ambulate with a limp. Patient with a swollen left arm due to IV infiltrate. Patient has
diffuse flat rash on arm, trunk and chest. Call gaitan in reach.
[2025-06-09] MEDS: NSS 1000 IV (15:59)
--- NOTE | 2025-06-09 16:19 | PTCARENOTE ---
Patient ambulated into bathroom to brush his teeth. Patient's HR with activity 167. Patient's HR at rest 140's. Physician made aware, order obtained for PRN Lopressor. Patient is AFIb on monitor.
[2025-06-09] MEDS: LOPRESSOR 5 MG IV (16:24)
--- NOTE | 2025-06-09 16:29 | CM ---
Patient seen at bedside in ED> Patient states that he lives in a 2 story home with his spouse. Patient has a rollator and 2 walkers, cane at home. Patient stated that his PCP is Dr. Lima and he uses the [facility] in [address] [place]. Patient plan
is for discharge home with no needs vs home with VN. CM will continue to follow for discharge planning needs.
Plan; home with no needs vs home with VN
--- NOTE | 2025-06-09 17:28 | PTCARENOTE ---
Received patient from IR. patient with bandaid to left groin. Patient has no c/o pain,
--- NOTE | 2025-06-09 17:38 | PTCARENOTE ---
Left groin IR site oozing blood. Compression applied and dressing replaced with a 2x2 and tegaderm.
--- NOTE | 2025-06-09 18:18 | PTCARENOTE ---
Patient's HR 140-167 Afib. Physician notified, orders obtained to start Cardizem drip at 5.
[2025-06-09] MEDS: CARDIZEM 125 IV (18:41)
[2025-06-09 20:21] LABS: Body Fluid Second Tech EYM
[2025-06-09 22:09] LABS: C-Reactive Protein 58.20 mg/L (0.0-10.00)
[2025-06-10] VITALS (7 sets, daily range): BP systolic 98–144; BP diastolic 62–94
[2025-06-10] MEDS: NSS IV (03:01)
[2025-06-10] MEDS: NSS 1000 IV (03:02)
[2025-06-10 07:26] LABS: Blood Urea Nitrogen 8 mg/dl (9-20); Calcium 8.8 mg/dl (8.4-10.2); Carbon Dioxide 25 mmol/L (22-30); Chloride 109 mmol/L (98-107); Estimated Creatinine Clearance > 125 ml/min; Glucose 92 mg/dl (70-99); Potassium 4.2 mmol/L (3.5-5.1); Sodium 139 mmol/L (135-145); eGFR > 60.00
[2025-06-10 07:54] LABS: Hematocrit 29.0 % (39.0-52.0); Hemoglobin 9.1 g/dL (13.0-18.0); Mean Corp Hgb Conc. 31.4 g/dL (33.0-37.0); Mean Corpuscular Volume 98.3 fL (80.0-94.0); Platelet Count 74 10^3/uL (130-400); Red Cell Dist. Width 23.0 % (11.5-14.5)
[2025-06-10] MEDS: HEPARIN 5000 UNITS SC ×2 (08:27→19:25)
--- NOTE | 2025-06-10 08:54 | CON.ORTHO ---
Consultation
-
Date/Time Consultation Requested: 06/09/2025 @ 16:16
Date/Time Consultation Performed: 06/10/2025 @ 8:00 AM
Requesting Provider: Naldo Hitchcock MD
Performing Provider: Cal Parham PA-C for Dr. Homero Guzman MD
Reason for Consultation: Fluid Collection Anterior to the Left Hip Joint
Consultation - Orthopedics
History
Orthopedic Surgery Note
CC: Fluid Collection Anterior to the Left Hip Joint
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 York
Ni (Eileen), presenting to [facility] at the request of his PCP for evaluation of diarrhea, vomiting, and weakness. CT Chest/abdomen/pelvis was performed in the ED, which revealed a fluid collection anterior to the left hip joint concerning for
possible abscess vs. hematoma. After his primary hip replacement this past December, he unfortunately sustained 5 dislocations and underwent closed reduction. He eventually underwent revision total hip arthroplasty this past April 2025.
Unfortunately, his revision post-op course was complicated by incisional bleeding requiring blood transfusions. He reports that he subsequently underwent debridement and irrigation of the wound around this past April 30. Per documentation, wound
cultures were performed showing Staphylococcus infection of the dermis treated with antibiotics. He denies any bleeding/incisional drainage or significant pain of the left hip at present. He reports occasional soreness described as a twinge which
he relates to his recent extensive Orthopedic history; denies any acute injuries or traumatic events. He denies any constitutional symptoms. He underwent IR drainage of the fluid collection yesterday evening revealing 260 mL of dark serous fluid
sent for laboratory analysis. Orthopedic surgery ([facility]) was consulted for treatment recommendations moving forward.
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 Jaylen Dan (Eileen), revision total hip arthroplasty April
2024.
Medications: Reviewed.
Family History: Family history was reviewed. Noncontributory.
Social history: Nonsmoker, no illicit drugs.
Exam
General appearance: Pleasant. No acute distress.
Head: Normocephalic/atraumatic
Nose: No lesions or discharge.
Skin: No obvious rashes or open wounds
Lungs: No audible wheezing, no cough or sputum production
Musculoskeletal:
LLE:
Physical examination of the left lower extremity reveals a healed surgical incision over the posterolateral hip without any drainage, erythema, warmth or ecchymosis. No significant pain with internal rotation to 20 degrees, external rotation to 20
degrees, hip flexion to 90 degrees, or hip abduction to 30 degrees. No significant tenderness to palpation over the greater trochanter. Calf is soft and nontender to palpation.
Imaging:
MRI Lumbar W/o & With Contrast was performed at [facility] on 06/08/2025 and was made available for my review today. Impression: No definite epidural fluid collection or evidence for discitis osteomyelitis. Multilevel degenerative changes
of the lumbar spine as detailed, worst at L3-L4 and L4-L5 for disc and facet disease contribute to moderate to severe spinal canal stenosis at these level. Findings are slightly progressed compared to prior exam 01/31/2018.
CT Chest/abd/pel Wo Iv Cont was performed at [facility] on 06/08/2025 and was made available for my review today. Impression: Fluid collection anterior to the left hip joint possibly abscess versus hematoma. Clinical and laboratory
correlation recommended. This could further be evaluated by ultrasound. Small hypointense hepatic lesion likely a small cyst or hemangioma. Minimally increased in size. Small pericardial effusion. New. Mild bladder wall thickening. This can
be seen with cystitis or bladder outlet obstruction. Stable.
US Groin (Imaging Only) LT was performed at [facility] on 06/09/2025 and was made available for my review today. Impression: Complex/septated fluid collection along the superior margin of the left hip measuring roughly 9.7 x 7.5 x 8.7 cm.
Labs:
ESR: pending
CRP: 58.20
Fluid WBC: 1,050
Fluid Monnuclear Cell: 71.4%
Fl Polymorphonucl Cell: 28.6%
Crystals: Negative
Fluid Gram Stain and Culture: Preliminary Gram Stain (+) WBC, No organisms seen. Fluid Culture pending.
Assessment and Plan: Case discussed with attending Dr. Guzman as well as primary team Dr. Hitchcock. Recommend consulting [facility] (index surgeon) for further management and recommendations moving forward. All questions were answered.
Allergies / Home Medications
Allergy/AdvReac Type Severity Reaction Status Date / Time
adhesive Allergy TAPE-RASH Verified 06/08/25 11:00
apricot Allergy Hives Verified 06/09/25 18:28
cefazolin Allergy anaphylaxis Verified 06/09/25 12:54
on
03/15/25;
tolerates
amoxicillin
Iodinated Contrast Media Allergy HEART STOPS Verified 06/08/25 11:00
(Iodinated Contrast Media -
IV Dye)
iodine (Iodine) Allergy HEART Verified 06/08/25 11:00
STOPS FROM
IVP
Latex, Natural Rubber Allergy Unknown Verified 06/08/25 11:00
levofloxacin (From Levaquin) Allergy achilles Verified 06/09/25 18:28
tendon pain
�Medication �Instructions �Recorded
acetaminophen 500 mg tablet 1,000 mg PO BID@1200,0000 Pain 06/08/25
(Tylenol Extra Strength)
aspirin 81 mg tablet,delayed 81 mg PO BID@1200,0000 Blood Clot 06/08/25
release Prevention/Tx
hydroxychloroquine 200 mg tablet 400 mg PO .SEE BELOW 06/08/25
Autoimmune Disorder
ibuprofen 200 mg tablet (Advil) 400 mg PO BID@1200,0000 Pain 06/08/25
metoprolol tartrate 25 mg tablet 25 mg PO BID@1200,0000 Blood 06/08/25
Pressure
upadacitinib 15 mg tablet,extended 15 mg PO BID@1200,0000 Autoimmune 06/08/25
release 24 hr (Rinvoq) Disorder
Vital Signs / Lab Results
Temp Pulse Resp BP Pulse Ox
98.1 F 121 18 138/94 100
06/10/25 07:55 06/10/25 07:55 06/10/25 07:55 06/10/25 07:55 06/10/25 07:55
06/10/25 06:35
06/10/25 06:35
[2025-06-10] MEDS: STERILE WATER FOR INJECTION IV ×3 (09:00→23:31)
[2025-06-10] MEDS: AZACTAM IV (09:01)
[2025-06-10] MEDS: LOPRESSOR 5 MG IV (09:36)
[2025-06-10] MEDS: ZOSYN 50 IV ×3 (10:13→21:15)
--- NOTE | 2025-06-10 10:13 | PHA.VAN.IN ---
Assessment
- Assessment
Renal Function: Appears similar to baseline
Concomitant Antimicrobials: Piperacillin/tazobactam
AUC Dosing Plan
- Dosing Variables
Dosing Weight (kg): 102
Dosing CrCl (ml/min): 125
Vd coefficient (L/kg): 0.7
- Empiric Dosing
Initial / Loading Dose: Vancomycin 2000mg - administration pending
Maintenance Regimen: Vancomycin 1500mg IV Q12h- to start at 2000 tonight
Estimated AUC (mcg*h/mL): 420
Estimated Peak (mcg*h/mL): 28.9
Estimated Trough (mcg/ml): 9.3
Estimated Half Life (H): 6
- Monitoring
No levels ordered at this time: consider levels in next few days.
Pharmacokinetics Vancomycin I
- -
Patient Age: 65
Patient Sex: Male
Vancomycin Day #: 1
Indication: Bone And Joint
Requesting Provider: Dr. Hitchcock
Height / Weight:
Height 6 ft 3 in
Actual Weight 102.013 kg
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
- Vital Signs / Lab Results
Temp Pulse Resp BP Pulse Ox
98.1 F 150 18 138/94 100
06/10/25 07:55 06/10/25 09:36 06/10/25 07:55 06/10/25 07:55 06/10/25 07:55
Lab Results - Hematology
06/08/25 06/09/25 06/10/25
11:48 05:31 06:35
WBC 2.6 L 1.7 L* 1.8 L*
Band Neutrophils 2
Lab Results - Chemistry
06/08/25 06/09/25 06/10/25
11:48 05:31 06:35
BUN 12 13 8 L
Creatinine 0.9 0.7 0.7
Estimated Creat Clear > 125 > 125
Albumin 4.2 3.4 L
06/08/25 06/08/25
11:48 15:15
Lactic Acid 1.8 Cancelled
Lab Results - Urine
06/08/25
13:34
Urine Nitrite (Reflex) Positive A
Leukocyte Esterase Rfl 3+ A
Urine WBC (Reflex) 16-20 A
Ur Squamous Epith Cells 3-5
Urine Bacteria (Reflex) Moderate A
Microbiology Results
06/08/25 13:34 Urine Culture - Preliminary
Urine Gram negative bacilli
06/09/25 17:10 Gram Stain - Preliminary
Fluid
06/08/25 11:48 Blood Culture - Preliminary
Blood/Venous No Growth in 24 hours- Final report to follow
06/08/25 11:48 Blood Culture - Preliminary
Blood/Venous No Growth in 24 hours- Final report to follow
06/09/25 08:58 C. difficile GDH Antigen & Toxins - Final
Feces/Stool Negative for toxigenic C.difficile
- Final
Negative for Norovirus GI and GII.
--- NOTE | 2025-06-10 10:15 | CON.CAR ---
Addendum entered and electronically signed by Cal Montgomery DO 06/10/25 13:10:
I saw and examined the patient.
The [employer] St[employer] Ironer's note was reviewed and I agree with the note.
Comment:
Plan:
Reviewed his AFib which is chronic.
Cont Metoprolol BID. If he has consistent rates greater than 120-130s, may consider increasing home Metoprolol dosing. for now would continue current Metoprolol dosing.
His HR response is likely secondary to his underlying infection and systemic issues.
PRN Lopressor 25 mg PO q4 hrs for HR greater than 130.
Patient would also like to continue with his usual regimen of aspirin 81 mg BID. Patient is not interested in OAC. [id number] is 0.
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
Stable cardiac status.
Original Note:
Consultation
Consultation Request
Date/Time Consultation Requested: 06/10/2025
Date/Time Consultation Performed: 06/10/2025
Requesting Provider: Dr. Ary Hitchcock
Performing Provider: Dr. Montgomery
Reason for Consultation: A-fib with RVR
Medical History
-
History of Present Illness:
Patient came to [facility] ER with weakness, diarrhea and vomiting and was admitted with UTI and sepsis, cardiology is now consulted for A-fib with RVR. Patient had an elective left hip replacement earlier this year and afterwards the hip dislocated 6
times prompting a revision procedure that was complicated by anaphylactic shock. Patient finally had hip revision in the last 6 to 8 weeks and shortly after that he had a wound infection and hematoma requiring surgical evacuation and IV
antibiotics. Patient was noted to be anemic at that time. Patient with known permanent A-fib and now follows with Dr. Gunter at [facility], but was previously seen by Dr. Dodd back in 2014. He is asymptomatic with his A-fib. Patient
is not interested in OAC and instead prefers aspirin therapy only. For years patient has been following at [facility] and back in March 2018 and echo performed in A-fib with RVR showed EF down to 25 to 30%, but Dr. Gunter repeated the echo
when A-fib was more rate controlled a couple of months later and EF was 40 to 45%. Going through records I do not see that the echo was ever repeated again. Patient denies history of heart failure and does not take a diuretic.
PMH:
Permanent atrial fibrillation
Not chronically on OAC due to patient decision
h/o CM EF 25 to 30% in the setting of A-fib with RVR by echo in 03/2018, repeat echo and rate controlled A-fib the EF was 40 to 45% 05/26/2018
Pancytopenia possibly related to outpatient immunotherapy for rheumatologic disease
Psoriatic arthritis
Granulomatous dermatitis
h/o
Past Medical History
Past Medical History: Other (In HPI)
Past Surgical History: Orthopedic (Left HUSSAIN) and Tonsilectomy
Social History
Tobacco: Former Smoker
Alcohol: Occasional
Drug: None
Personal:
Living: With Family
Family History
Family History: Cancer (Father with mesothelioma)
Allergies / Home Medications
Allergy/AdvReac Type Severity Reaction Status Date / Time
adhesive Allergy TAPE-RASH Verified 06/08/25 11:00
apricot Allergy Hives Verified 06/09/25 18:28
cefazolin Allergy anaphylaxis Verified 06/09/25 12:54
on
03/15/25;
tolerates
amoxicillin
Iodinated Contrast Media Allergy HEART STOPS Verified 06/08/25 11:00
(Iodinated Contrast Media -
IV Dye)
iodine (Iodine) Allergy HEART Verified 06/08/25 11:00
STOPS FROM
IVP
Latex, Natural Rubber Allergy Unknown Verified 06/08/25 11:00
levofloxacin (From Levaquin) Allergy achilles Verified 06/09/25 18:28
tendon pain
�Medication �Instructions �Recorded �Confirmed �Type
acetaminophen 500 mg tablet 1,000 mg PO BID@1200,0000 Pain 06/08/25 06/08/25 History
(Tylenol Extra Strength)
aspirin 81 mg tablet,delayed 81 mg PO BID@1200,0000 Blood Clot 06/08/25 06/08/25 History
release Prevention/Tx
hydroxychloroquine 200 mg tablet 400 mg PO .SEE BELOW 06/08/25 06/09/25 History
Autoimmune Disorder
ibuprofen 200 mg tablet (Advil) 400 mg PO BID@1200,0000 Pain 06/08/25 06/08/25 History
metoprolol tartrate 25 mg tablet 25 mg PO BID@1200,0000 Blood 06/08/25 06/08/25 History
Pressure
upadacitinib 15 mg tablet,extended 15 mg PO BID@1200,0000 Autoimmune 06/08/25 06/08/25 History
release 24 hr (Rinvoq) Disorder
Review of Systems
-
History Source: Patient
All other systems: Negative unless noted
Physical Exam
Vital Signs
Temp Pulse Resp BP Pulse Ox
98.1 F 150 18 138/94 100
06/10/25 07:55 06/10/25 09:36 06/10/25 07:55 06/10/25 07:55 06/10/25 07:55
GEN: NAD. AAOx3
HEENT: EOMI
LUNGS: RA. No audible wheeze
CV: Afib on tele. Irreg irreg
ABD: ND
EXT: Trace left greater than right LE edema
NEURO: Gross non-focal
SKIN: No rash
Lab Results
06/10/25 06:35
06/10/25 06:35
Troponin I 0.013 ng/ml 06/08/25 22:12
Impression / Plan
-
PCP: Yoshi Lima
Cardiology: Dr. Gunter at [facility]
Impression:
Admitted with sepsis and UTI 06/08/2025
Citrobacter UTI
Possible sepsis
Fluid collection near the left hip s/p drainage 06/09/2025
Permanent atrial fibrillation with intermittent RVR
Not chronically on OAC due to patient decision
h/o CM EF 25 to 30% in the setting of A-fib with RVR by echo in 03/2018, repeat echo and rate controlled A-fib the EF was 40 to 45% 05/26/2018
Pancytopenia possibly related to outpatient immunotherapy for rheumatologic disease
Psoriatic arthritis
Granulomatous dermatitis
h/o biopsy-proven giant cell arteritis 06/2023
Plan:
-Patient came to [facility] ER with weakness, diarrhea and vomiting and was admitted with UTI and sepsis, cardiology is now consulted for A-fib with RVR. Patient had an elective left hip replacement earlier this year and afterwards the hip dislocated 6
times prompting a revision procedure that was complicated by anaphylactic shock. Patient finally had hip revision in the last 6 to 8 weeks and shortly after that he had a wound infection and hematoma requiring surgical evacuation and IV
antibiotics. Patient was noted to be anemic at that time. Patient with known permanent A-fib and now follows with Dr. Gunter at [facility], but was previously seen by Dr. Dodd back in 2014. He is asymptomatic with his A-fib. Patient
is not interested in OAC and instead prefers aspirin therapy only. For years patient has been following at [facility] and back in March 2018 and echo performed in A-fib with RVR showed EF down to 25 to 30%, but Dr. Gunter repeated the echo
when A-fib was more rate controlled a couple of months later and EF was 40 to 45%. Going through records I do not see that the echo was ever repeated again. Patient denies history of heart failure and does not take a diuretic.
-ECG and telemetry reviewed by me, A-fib with RVR at times
-Long talk with patient about his history of A-fib and reviewing his records from [facility]. Patient with permanent A-fib. HR controlled with Lopressor 25 mg BID. HR is more rapid at times likely associated with activity and
underlying infection, patient is accepting of this. Patient with a history of life-threatening anaphylaxis and so understandably he does not want to make many medication changes. We will continue with his usual dose of Lopressor and have added a
PRN Lopressor 25 mg PO q4 hrs for HR greater than 130.
-Patient would also like to continue with his usual regimen of aspirin 81 mg BID. Patient is not interested in OAC. [id number] is 0.
-Patient will continue to follow with Dr. 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
[2025-06-10] MEDS: VANCOCIN 540 MG IV (10:49)
--- NOTE | 2025-06-10 11:00 | W.PN.HOSP.TC ---
Today's Communication/Plan
-
cardiology consult
pending fluid cultures.
Assessment / Plan
Assessment / Plan
Impression:
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
associated diarrhea , vomiting and weakness. Patient recently traveled to [place] and had eaten out at several restaurants. No sick contacts.
Noted to have UTI, also CT abdomen pelvis shows evidence of fluid collection anterior left hip.
Assessment/plan:
Sepsis (leukopenia, tachycardia)/urinary incontinence secondary to UTI/acute gastroenteritis in setting of immunocompromise status due to Rinvoq
Rule out left anterior hip infection
- see individually below.
Fluid collection anterior to the left hip joint likely residual fluid collection from prior hip surgery and complications
Hip surgery complicated by bleeding wound/staph infection of the wound
-Patient without any acute symptoms of the left hip joint (has left groin pain secondary to transport to MRI)
- CT chest abdomen pelvis shows fluid collection anterior to the left hip joint possibly abscess versus hematoma, mild bladder wall thickening, small pericardial effusion,
Ordered ultrasound left groin.
- Intervention radiology consult status post drainage, pending culture.
- Orthopedic consulted, appreciate input.
- Continue IV antibiotics for now (initially started on aztreonam, but patient requested to switch to antibiotic-currently on vancomycin and Zosyn)
Urinary tract infection (Citrobacter koseri)
- Urinalysis shows 16-20 WBC, plus leukocyte esterase, positive nitrates
- Urine culture Citrobacter koseri. Pansensitive
-IV fluids
- aztreonam discontinued and started on vancomycin and Zosyn.
- Continue for now to cover possibility of anterior left hip fluid infection.
Atrial fibrillation with RVR secondary to sepsis
- Initially metoprolol given with improvement in heart rate and Cardizem not required, but then Patient developed atrial fibrillation with RVR, and Cardizem drip started.
- patient refused cardizem drip untill discuss with the physician why he devloped RVR.
- I explained to the patient that rapid A-fib possibly secondary to underlying infection and sepsis but patient believes his rapid A-fib happened secondary to antibiotics requested to switch antibiotic, I changed antibiotic to Zosyn and added
vancomycin to cover concern of hip infection.
-Cardiology consulted.
- patient with low TARIK-VASc score, I discussed with the patient the consideration of starting anticoagulation and the benefits to reduce the risk of stroke, the patient refused to start NOAC and requested to continue with aspirin.
# Acute gastroenteritis
No more diarrhea
Pancytopenia
- Drug-induced: Stable
History of granulomatous dermatitis/psoriatic arthritis
- Rinvoq stopped and new immunotherapy started which was also discontinued due to pancytopenia
- Continue hydroxychloroquine
CODE STATUS: Full code
DVT prophylaxis: heparin
Diet: LRD
Disposition: pending fluid cultures.
Total time spent on today's encounter was 65 minutes which included time spent in counseling the patient/family regarding diagnosis and treatment plan as listed above, goals of care, and symptom management. Case was discussed with nursing staff,
specialists, and care coordinators/case management. All labs and imaging personally reviewed by me. Remainder the time spent in detailed review of previous records, lab data, imaging, and other medical provider documentation.
Anticipated Discharge: 24 - 48 hours
Subjective/Interval History
-
Date of Service: June 10, 2025
Patient seen and examined at bedside.
Episodes of atrial fibrillation with RVR and required transient Cardizem drip, cardiology consulted.
Patient denied chest pain or shortness of breath.
Objective Data
-
Labs:
Laboratory Results
06/10/25
06:35
WBC 1.8 L*
Hgb 9.1 L
Hct 29.0 L
Plt Count 74 L
Sodium 139
Potassium 4.2
Chloride 109 H
Carbon Dioxide 25
BUN 8 L
Creatinine 0.7
Glucose 92
Calcium 8.8
Vital Signs:
Vital Signs
Temp Pulse Resp BP Pulse Ox
98.1 F 150 18 138/94 100
06/10/25 07:55 06/10/25 09:36 06/10/25 07:55 06/10/25 07:55 06/10/25 07:55
I&O
06/09/25 06/10/25 06/11/25
06:59 06:59 06:59
Intake Total 700 / 700 960 / 960
Output Total 900 / 900 2100 / 2100
Balance -200 / -200 -1140 / -1140
Physical Exam
-
General: Well Developed, Well Nourished, No Apparent Distress and Comfortable
HEENT: Normocephalic, Atraumatic, Moist Mucous Membranes, No Ptosis, PERRLA and Nose Appears Normal
Respiratory: Clear to Auscultation and Non Labored Respirations
Cardiac: S1/S2, Irregular Rhythm and Tachycardic
Breast: Deferred by me
GI: Soft, Nontender, Nondistended and Normal Bowel Sounds
Genito-urinary: No Costovertebral Tender
Musculoskeletal: No Clubbing, No Cyanosis and No Edema
Skin: Warm
Neuro: Awake, Alert, Oriented, AO x 3 and No Motor Deficits
Psych: Calm
Data Reviewed
-
Diagnostic Radiology: Image personally visualized and interpreted and Report Reviewed by me
CT Scan: Image personally visualized and interpreted and Report Reviewed by me
Ultrasound: Image personally visualized and interpreted and Report Reviewed by me
MRI: Image personally visualized and interpreted and Report Reviewed by me
Medical Tests (Nuc Med, Echo etc): Image personally visualized and interpreted and Report Reviewed by me
Labs: Labs Reviewed by me
Old Records: Reviewed
--- NOTE | 2025-06-10 12:18 | W.CHA2DS2VAS ---
[id number] Score
Score
Age in Years (65=0, 65-74=1, >/=75=2): <65
Sex (Female=+1): Male
Congestive Heart Failure History (Yes=+1): No
Hypertension History (Yes=+1): No
Stroke/TIA/Thromboembolism History (Yes=+2): No
Vascular Disease History (Yes=+1): No
Diabetes Mellitus (Yes=+1): No
Score >/=2 is otherwise an anticoagulation candidate: 0
[2025-06-10] MEDS: TYLENOL 1000 MG PO ×2 (13:04→23:29)
[2025-06-10] MEDS: LOPRESSOR 25 MG PO ×2 (13:04→23:29)
[2025-06-10] MEDS: ASPIR LOW (ENTERIC COATED) 81 MG PO ×2 (13:04→23:29)
[2025-06-10] MEDS: MOTRIN 400 MG PO ×2 (13:05→23:29)
--- NOTE | 2025-06-10 19:03 | PTCARENOTE ---
pt had a HR of 120-140 with slight activity while in the room helping him get changed, this nurse went in to check on patient and he refused the PRN Lopresor, he said to watch the HR for 10 minutes after he lays in bed and if still in thos high
number he would take the PRN dose. HR did come down to 80 after a while.
[2025-06-10] MEDS: VANCOCIN 530 MG IV (19:25)
[2025-06-11 03:08] VITALS: BP 135/79
[2025-06-11] MEDS: ZOSYN 50 IV ×2 (03:08→11:07)
[2025-06-11] MEDS: VANCOCIN 530 MG IV (05:58)
[2025-06-11 07:47] VITALS: BP 149/95
[2025-06-11 07:47] LABS: Hematocrit 27.4 % (39.0-52.0); Hemoglobin 8.7 g/dL (13.0-18.0); Mean Corp Hgb Conc. 31.8 g/dL (33.0-37.0); Mean Corpuscular Volume 98.6 fL (80.0-94.0); Platelet Count 74 10^3/uL (130-400); Red Cell Dist. Width 22.5 % (11.5-14.5)
[2025-06-11] MEDS: HEPARIN 5000 UNITS SC (07:48)
[2025-06-11] MEDS: LOPRESSOR 25 MG PO ×2 (07:48→13:13)
[2025-06-11] MEDS: STERILE WATER FOR INJECTION IV (07:58)
--- NOTE | 2025-06-11 10:51 | W.PN.HOSP.TC ---
Today's Communication/Plan
-
Discharge home today
Assessment / Plan
Assessment / Plan
Impression:
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
associated diarrhea , vomiting and weakness. Patient recently traveled to [place] and had eaten out at several restaurants. No sick contacts.
Noted to have UTI, also CT abdomen pelvis shows evidence of fluid collection anterior left hip.
Status post aspiration of 260 cc
Culture shows no growth
Urine culture positive for Citrobacter, sensitive to Augmentin.
Patient will be discharged on Augmentin and Doxy.
Assessment/plan:
Sepsis (leukopenia, tachycardia)/urinary incontinence secondary to UTI/acute gastroenteritis in setting of immunocompromise status due to Rinvoq
Rule out left anterior hip infection
- see individually below.
Fluid collection anterior to the left hip joint likely residual fluid collection from prior hip surgery and complications
Hip surgery complicated by bleeding wound/staph infection of the wound
-Patient without any acute symptoms of the left hip joint (has left groin pain secondary to transport to MRI)
- CT chest abdomen pelvis shows fluid collection anterior to the left hip joint possibly abscess versus hematoma, mild bladder wall thickening, small pericardial effusion,
Ordered ultrasound left groin.
- Intervention radiology consult status post drainage, pending culture.
- Orthopedic consulted, appreciate input.
- Continue IV antibiotics for now (initially started on aztreonam, but patient requested to switch to antibiotic-currently on vancomycin and Zosyn)
- Blood culture with no growth, will be discharged on doxycycline and addition of Augmentin for UTI
Urinary tract infection (Citrobacter koseri)
- Urinalysis shows 16-20 WBC, plus leukocyte esterase, positive nitrates
- Urine culture Citrobacter koseri. Pansensitive
-IV fluids
- aztreonam discontinued and started on vancomycin and Zosyn.
- Continue for now to cover possibility of anterior left hip fluid infection.
- Discharged home on Augmentin
Atrial fibrillation with RVR secondary to sepsis
- Initially metoprolol given with improvement in heart rate and Cardizem not required, but then Patient developed atrial fibrillation with RVR, and Cardizem drip started.
- patient refused cardizem drip untill discuss with the physician why he devloped RVR.
- I explained to the patient that rapid A-fib possibly secondary to underlying infection and sepsis but patient believes his rapid A-fib happened secondary to antibiotics requested to switch antibiotic, I changed antibiotic to Zosyn and added
vancomycin to cover concern of hip infection.
-Cardiology consulted.
- patient with low TARIK-VASc score, I discussed with the patient the consideration of starting anticoagulation and the benefits to reduce the risk of stroke, the patient refused to start NOAC and requested to continue with aspirin.
# Acute gastroenteritis
No more diarrhea
Pancytopenia
- Drug-induced: Stable
History of granulomatous dermatitis/psoriatic arthritis
- Rinvoq stopped and new immunotherapy started which was also discontinued due to pancytopenia
- Continue hydroxychloroquine
CODE STATUS: Full code
DVT prophylaxis: heparin
Diet: LRD
Disposition: Discharge home today
Total time spent on today's encounter was 65 minutes which included time spent in counseling the patient/family regarding diagnosis and treatment plan as listed above, goals of care, and symptom management. Case was discussed with nursing staff,
specialists, and care coordinators/case management. All labs and imaging personally reviewed by me. Remainder the time spent in detailed review of previous records, lab data, imaging, and other medical provider documentation.
Anticipated Discharge: Today
Subjective/Interval History
-
Date of Service: June 11, 2025
Patient seen and examined at bedside, denies any chest pain or shortness of breath, no abdominal pain, no nausea, no vomiting, no diarrhea or constipation.
Objective Data
-
Labs:
Laboratory Results
06/11/25
06:16
WBC 1.9 L*
Hgb 8.7 L
Hct 27.4 L
Plt Count 74 L
Vital Signs:
Vital Signs
Temp Pulse Resp BP Pulse Ox
97.6 F 123 18 149/95 100
06/11/25 08:00 06/11/25 07:47 06/11/25 07:47 06/11/25 07:47 06/11/25 07:47
I&O
06/10/25 06/11/25 06/12/25
06:59 06:59 06:59
Intake Total 960 / 960 2570 / 2570
Output Total 2100 / 2100 3700 / 3700
Balance -1140 / -1140 -1130 / -1130
Physical Exam
-
General: Well Developed, Well Nourished, No Apparent Distress and Comfortable
HEENT: Normocephalic, Atraumatic, Moist Mucous Membranes, No Ptosis, PERRLA and Nose Appears Normal
Respiratory: Clear to Auscultation and Non Labored Respirations
Cardiac: S1/S2, Irregular Rhythm and Tachycardic
Breast: Deferred by me
GI: Soft, Nontender, Nondistended and Normal Bowel Sounds
Genito-urinary: No Costovertebral Tender
Musculoskeletal: No Clubbing, No Cyanosis and No Edema
Skin: Warm
Neuro: Awake, Alert, Oriented, AO x 3 and No Motor Deficits
Psych: Calm
Data Reviewed
-
Diagnostic Radiology: Image personally visualized and interpreted and Report Reviewed by me
CT Scan: Image personally visualized and interpreted and Report Reviewed by me
Ultrasound: Image personally visualized and interpreted and Report Reviewed by me
MRI: Image personally visualized and interpreted and Report Reviewed by me
Medical Tests (Nuc Med, Echo etc): Image personally visualized and interpreted and Report Reviewed by me
Labs: Labs Reviewed by me
Old Records: Reviewed
--- NOTE | 2025-06-11 10:59 | W.DCSUMMARY ---
Discharge Summary
Discharge Data
Date of Admission: 06/08/25
Date of Discharge: 06/11/25
Total time spent discharging patient (in min): 40
-
Pending Results: No
Hospital Course
Hospital course
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
associated diarrhea , vomiting and weakness. Patient recently traveled to [place] and had eaten out at several restaurants. No sick contacts.
Noted to have UTI, also CT abdomen pelvis shows evidence of fluid collection anterior left hip.
Status post aspiration of 260 cc
Culture shows no growth
Urine culture positive for Citrobacter, sensitive to Augmentin.
Patient will be discharged on Augmentin and Doxy.
During hospitalization patient was treated from the following
Sepsis (leukopenia, tachycardia)/urinary incontinence secondary to UTI/acute gastroenteritis in setting of immunocompromise status due to Rinvoq
Rule out left anterior hip infection
- see individually below.
Fluid collection anterior to the left hip joint likely residual fluid collection from prior hip surgery and complications
Hip surgery complicated by bleeding wound/staph infection of the wound
-Patient without any acute symptoms of the left hip joint (has left groin pain secondary to transport to MRI)
- CT chest abdomen pelvis shows fluid collection anterior to the left hip joint possibly abscess versus hematoma, mild bladder wall thickening, small pericardial effusion,
Ordered ultrasound left groin.
- Intervention radiology consult status post drainage, pending culture.
- Orthopedic consulted, appreciate input.
- Continue IV antibiotics for now (initially started on aztreonam, but patient requested to switch to antibiotic-currently on vancomycin and Zosyn)
- Blood culture with no growth, will be discharged on doxycycline and addition of Augmentin for UTI
Urinary tract infection (Citrobacter koseri)
- Urinalysis shows 16-20 WBC, plus leukocyte esterase, positive nitrates
- Urine culture Citrobacter koseri. Pansensitive
-IV fluids
- aztreonam discontinued and started on vancomycin and Zosyn.
- Continue for now to cover possibility of anterior left hip fluid infection.
- Discharged home on Augmentin
Atrial fibrillation with RVR secondary to sepsis
- Initially metoprolol given with improvement in heart rate and Cardizem not required, but then Patient developed atrial fibrillation with RVR, and Cardizem drip started.
- patient refused cardizem drip untill discuss with the physician why he devloped RVR.
- I explained to the patient that rapid A-fib possibly secondary to underlying infection and sepsis but patient believes his rapid A-fib happened secondary to antibiotics requested to switch antibiotic, I changed antibiotic to Zosyn and added
vancomycin to cover concern of hip infection.
-Cardiology consulted.
- patient with low TARIK-VASc score, I discussed with the patient the consideration of starting anticoagulation and the benefits to reduce the risk of stroke, the patient refused to start NOAC and requested to continue with aspirin.
# Acute gastroenteritis
No more diarrhea
Pancytopenia
- Drug-induced: Stable
History of granulomatous dermatitis/psoriatic arthritis
- Rinvoq stopped and new immunotherapy started which was also discontinued due to pancytopenia
- Continue hydroxychloroquine
CODE STATUS: Full code
DVT prophylaxis: heparin
Diet: LRD
Disposition: Discharge home today
Total time spent on today's encounter was 40 minutes which included time spent in counseling the patient/family regarding diagnosis and treatment plan as listed above, goals of care, and symptom management. Case was discussed with nursing staff,
specialists, and care coordinators/case management. All labs and imaging personally reviewed by me. Remainder the time spent in detailed review of previous records, lab data, imaging, and other medical provider documentation.
Anticipated Discharge: Today
Discharge Plan
-
Patient Disposition: Home (Routine Discharge)
Discharge Diagnosis/Procedures: Sepsis/ UTI
Fluid collection anterior to the left hip joint
Diet: As tolerated and Regular
Activity: As tolerated
Referrals:
Jensen Gunter MD [Non-Admitting Privileges, Cardiology] - in two to three weeks
Yvon Lima CRNP [Family Provider, Family Practice] - in one week
Jaylen Dan MD [Non-Admitting Privileges, Orthopedics] - in two to four weeks
Prescriptions:
New
metoprolol tartrate 25 mg Tablet
25 mg PO Q4 PRN (Reason: HR>110 for >30 minutes) Qty: 30 0RF
amoxicillin-pot clavulanate 875-125 mg tablet
1 tab PO BID Qty: 10 0RF
doxycycline hyclate 100 mg capsule
100 mg PO BID Qty: 10 0RF
Continued
ibuprofen [Advil] 200 mg Tablet
400 mg PO BID@1200,0000
aspirin 81 mg Tablet,Delayed Release (Dr/Ec)
81 mg PO BID@1200,0000
acetaminophen [Tylenol Extra Strength] 500 mg Tablet
1,000 mg PO BID@1200,0000
hydroxychloroquine 200 mg Tablet
400 mg PO .SEE BELOW
Rx Instructions:
06/09/25-prescribed for pt. to take 1 tablet BID; however, pt. has been taking 2 tablets BID because he misread the prescription instructions.
metoprolol tartrate 25 mg Tablet
25 mg PO BID@1200,0000
Rinvoq 15 mg tablet extended release 24 hr
15 mg PO BID@1200,0000
Rx Instructions:
Currently on hold per pt.
Discharge Orders:
Discharge Patient (As Directed); Ordered 06/11/25
Ordered By: Ary Hitchcock
Discharge Date and Time
Print Language: H[place] K[place]ER
[2025-06-11 11:13] VITALS: BP 118/77
[2025-06-11] MEDS: MOTRIN 400 MG PO (13:12)
[2025-06-11] MEDS: ASPIR LOW (ENTERIC COATED) 81 MG PO (13:13)
[2025-06-11] MEDS: TYLENOL 1000 MG PO (13:13)
== END 2025-06-11 14:03 | disposition home or self-care (01) | DRG 872 ==
LOC: 2 NORTH 22:50
PROVIDERS: Radiology Vascular & Interventional Radiology; Student in an Organized Health Care Education/Training Program; ADMITTING PHYSICIAN Hospitalist; ATTENDING PHYSICIAN General Practice; CONSULT PHYSICIAN Nuclear Medicine Nuclear Cardiology; CONSULT PHYSICIAN Specialist; EMERGENCY PHYSICIAN Emergency Medicine; FAMILY PHYSICIAN Nurse Practitioner Family
PROC: 0S9B3ZX Drainage of Left Hip Joint, Percutaneous Approach, Diagnostic (ICD-10-PCS; 2025-06-09)
DX: A41.89 Other specified sepsis (principal); N39.0 Urinary tract infection, site not specified; D61.818 Other pancytopenia; D84.9 Immunodeficiency, unspecified; I48.21 Permanent atrial fibrillation; M00.052 Staphylococcal arthritis, left hip; M54.9 Dorsalgia, unspecified; N39.498 Other specified urinary incontinence; M19.90 Unspecified osteoarthritis, unspecified site; L30.9 Dermatitis, unspecified; M25.452 Effusion, left hip; L40.50 Arthropathic psoriasis, unspecified; K52.9 Noninfective gastroenteritis and colitis, unspecified; B95.8 Unspecified staphylococcus as the cause of diseases classified elsewhere; M31.6 Other giant cell arteritis; M48.061 Spinal stenosis, lumbar region without neurogenic claudication; Z96.642 Presence of left artificial hip joint; Z91.041 Radiographic dye allergy status; Z79.01 Long term (current) use of anticoagulants; Z79.52 Long term (current) use of systemic steroids; Z79.82 Long term (current) use of aspirin; Z88.1 Allergy status to other antibiotic agents; Z91.040 Latex allergy status; Z87.891 Personal history of nicotine dependence; Z80.9 Family history of malignant neoplasm, unspecified
CPT/HCPCS: 10160; 51798; 71046; 71250; 72158; 74176; 76882; 76942; 80048; 80053; 81003; 81015; 83605; 84484; 85025; 85027; 85610; 85730; 86140; 87015; 87040; 87045; 87046; 87070; 87077; 87086; 87186; 87205; 87324; 87427; 87449; 87798; 89051; 89060; 93005; 96361; 96374; 96375; 99291; A9575

== ENCOUNTER 2025-07-24 13:36 | Emergency (ER) | payer OTHER, SELFPAY ==
[2025-07-24 13:40] VITALS: BP 156/102
--- NOTE | 2025-07-24 14:38 | ED.GENMED ---
History of Present Illness
General
Chief Complaint: Abdominal Pain
Source: patient
Exam Limitations: none
Time Seen by Provider: 07/24/25 14:36
Nursing documentation reviewed up to this point in time: agreed with
History of Present Illness
History of Present Illness:
Patient to ED with complaint of left sided abdominal pain that radiates to left lower back. Symptoms started approx 1 week ago but were mild. States over the past few days pain has increased. Pain is worse with movement, better wtih rest. Denies
any history of trauma. Has history of back pain but states this feels different. He was treated for UTI last week, completed last dose of cipro yesterday. He is concernied that this is related. Denies fever/chills. Reports occassional nausea. No
v/d. To ED accompanied by spouse.
Past History
Past History
ED Past Medical History: Other (Back pain) and Other (Previous splenic injury and hand surgery for,.)
Patient has exhibited threatening behavior?: No
Social History
Tobacco: Non-smoker
Alcohol: None
Drug: None
Personal:
Living: with family
Employment: Employed
Family History
Family History: Other
Review of Systems
Review of Systems
Allergies reviewed?: Yes
All Other Systems: ROS reviewed and negative except as documented in HPI and ROS
Constitutional: Reports no symptoms
EENT: Reports no symptoms
Respiratory: Reports no symptoms
Cardiac: Reports no symptoms
ABD/GI: Reports abdominal pain (left sided ab.d pain)
: Reports no symptoms
Musculoskeletal: Reports back pain (left low back)
Skin: Reports no symptoms
Neurological: Reports no symptoms
Psychiatric: Reports no symptoms
Phy Exam
General Physical Exam
General Presentation: well appearing
General age: appears stated age
General Skin: warm
General Habitus: normal
General Mental: alert
General Hydration: appears well hydrated
Cardiovascular Exam
Cardiovascular Exam: regular rate/rhythm
Pulmonary Exam
Pulmonary Exam: lungs clear and no respiratory distress
Gastrointestinal Exam
Gastrointestinal Exam: normal bowel sounds, non tender, soft, no organomegaly, no pulsatile mass, non distended and no cva tenderness
Palpation: left upper quadrant: No tenderness (Unable to reproduce pain with palpation), left lower quadrant: No tenderness (Unable to reproduce pain with palpation), right upper quadrant: No tenderness (Unable to reproduce pain with palpation) and
right lower quadrant: No tenderness (Unable to reproduce pain with palpation)
Musculoskeletal Exam
Musculoskeletal Exam: full ROM, neuro vasc intact and other (Pain with movement left lower back)
Skin Exam
Skin Exam: normal color, warm/dry and no rash
Psychiatric Exam
Psychiatric Exam: normal mood/affect
Course
Orders/Labs/Results
Orders:
Orders
07/24/25 15:18
Complete Blood Count/With Diff Urgent
Comprehensive Metabolic Panel Urgent
Lipase Urgent
07/24/25 15:27
Urinalysis Reflex To Culture Urgent
Date Specimen was Collected: 07/24/25
Time Specimen was Collected: 15:26
07/24/25 15:43
CT Abd/pel Without Iv Or Oral Urgent
Comment:
Reason For Exam: left abd pain radiating to back.
Abnormal Lab Results
07/24/25
15:18
WBC 2.9 L 10^3/uL
(4.8-10.8)
RBC 3.48 L 10^6/uL
(4.70-6.10)
Hgb 11.1 L g/dL
(13.0-18.0)
Hct 34.2 L %
(39.0-52.0)
MCV 98.3 H fL
(80.0-94.0)
MCH 31.9 H pg
(27.0-31.0)
MCHC 32.5 L g/dL
(33.0-37.0)
RDW 20.0 H %
(11.5-14.5)
Plt Count 85 L 10^3/uL
(130-400)
Abs Immat Gran (auto) 0.1 H 10^3/uL
(0-0.05)
Absolute Lymphs (auto) 0.6 L 10^3/uL
(1.2-3.4)
Immature Gran % 3.1 H %
(0-0.5)
Lymphocytes % 20.0 L %
(20.5-51.1)
Monocytes % 18.3 H %
(1.7-9.3)
Basophils % 2.1 H %
(0-2)
07/24/25 15:18
07/24/25 15:18
Vital Signs
Initial and Last Documented VS:
Initial Vital Signs
Temp Pulse Resp BP Pulse Ox
98.0 F 108 16 156/102 98
07/24/25 13:40 07/24/25 13:40 07/24/25 13:40 07/24/25 13:40 07/24/25 13:40
Last Documented Vital Signs
Temp Pulse Resp BP Pulse Ox
98.4 F 92 18 127/84 99
07/24/25 17:03 07/24/25 18:15 07/24/25 18:15 07/24/25 18:15 07/24/25 18:15
*Radiology
Radiology exam reviewed: radiology read reviewed
*Pulse Oximetry
SaO2: 98
Patient hypoxic: no
*Critical Care Note
Total Time (30-74mins, 75-104mins- exclusive of procedures): Not Applicable
Update Note
Update Note:
Patient to ED wt report of lefft sided abd. pain radiating to left lower back. x 1 week. Pain is worse with movement. Unable to reproduce abd. pain with palpation. Labs reviewed. WBC 2.9. He was taking Rinvoq for diffuse rash/skin issues but
med was recently stopped due to declining WBC and platelets. Todays levels are slightly improved. CMP, urinalysis unremarkable. CT limited due to artifact but no concerning fidings indentified. I fell his symptoms are related to his back,
musculoskeletal pain. Abominal exam normal. VSS and he remains afebrile. Recommend he continue ice or heat, ibuprofen prn. Given short course of pain meds. He is discharged home and will follo wup with PCP. Given instructions on s/s to return
to ED and he is agreeablle to plan.
ED Attending Note
-
Portions of this chart may have been created with voice recognition software.� Occasional wrong word or��sound alike� substitutions may have occurred due to the inherent limitations of voice recognition software.
Discharge Plan
Departure
Patient Disposition: Home (Routine Discharge)
Date of Disposition: 07/24/25
Time of Disposition: 18:35
Patient with high blood pressure during this ER visit?: No
Condition: Good
Covid-19: Not Applicable
Discharge Problem:
Abdominal pain, Back pain
Instructions: Back Pain, Abdominal Pain
Prescriptions:
New
oxycodone 5 mg capsule
5 mg PO Q4H PRN (Reason: Pain) Qty: 10 0RF
No Action
ibuprofen [Advil] 200 mg Tablet
400 mg PO BID@1200,0000
aspirin 81 mg Tablet,Delayed Release (Dr/Ec)
81 mg PO BID@1200,0000
acetaminophen [Tylenol Extra Strength] 500 mg Tablet
1,000 mg PO BID@1200,0000
hydroxychloroquine 200 mg Tablet
400 mg PO .SEE BELOW
Rx Instructions:
06/09/25-prescribed for pt. to take 1 tablet BID; however, pt. has been taking 2 tablets BID because he misread the prescription instructions.
metoprolol tartrate 25 mg Tablet
25 mg PO BID@1200,0000
Rinvoq 15 mg tablet extended release 24 hr
15 mg PO BID@1200,0000
Rx Instructions:
Currently on hold per pt.
metoprolol tartrate 25 mg Tablet
25 mg PO Q4 PRN (Reason: HR>110 for >30 minutes) Qty: 30 0RF
amoxicillin-pot clavulanate 875-125 mg tablet
1 tab PO BID Qty: 10 0RF
doxycycline hyclate 100 mg capsule
100 mg PO BID Qty: 10 0RF
Referrals:
Yvon Lima CRNP [Family Provider, Family Practice] - Follow up in 2-3 days
Activity Restrictions/Additional Instructions:
Return to the emergency department immediately for any changes in/worsening of your symptoms.
Interventions
Interventions:
*Risk Screen - Suicide Last Done: 07/24/25 13:40
*General Assessment Last Done: 07/24/25 15:08
*Neglect/Abuse Screening Last Done: 07/24/25 13:40
*ED- Fall Risk Assessment Last Done: 07/24/25 15:08
*ED COVID-19 Vaccine History Last Done: 07/24/25 15:08
*Nursing Disposition Last Done: 07/24/25 18:48
WS-Ytdwpu-Yoeavvidyr Assessment Last Done: 07/24/25 15:10
Discharge Date and Time
Discharge Date/Time: 07/24/25 18:48
Print Language: MALTESE
[2025-07-24 15:06] VITALS: BP 129/87
[2025-07-24 15:07] VITALS: BMI 29.2
[2025-07-24 15:39] LABS: Urine Character Clear (Clear)
[2025-07-24 15:43] LABS: Hematocrit 34.2 % (39.0-52.0); Hemoglobin 11.1 g/dL (13.0-18.0); Mean Corp Hgb Conc. 32.5 g/dL (33.0-37.0); Mean Corpuscular Volume 98.3 fL (80.0-94.0); Nucleated Red Blood Cells % 0 % (-); Red Cell Dist. Width 20.0 % (11.5-14.5)
[2025-07-24 15:47] LABS: ALT (SGPT) 19 U/L (0-50); AST (SGOT) 29 U/L (17-59); Albumin 3.8 g/dl (3.5-5.0); Alkaline Phosphatase 84 U/L (38-126); Blood Urea Nitrogen 19 mg/dl (9-20); Calcium 9.8 mg/dl (8.4-10.2); Carbon Dioxide 27 mmol/L (22-30); Chloride 103 mmol/L (98-107); Estimated Creatinine Clearance > 125 ml/min; Glucose 85 mg/dl (70-99); Lipase 73 U/L (23-300); Potassium 4.7 mmol/L (3.5-5.1); Sodium 135 mmol/L (135-145); Total Protein 6.3 g/dl (6.3-8.2); eGFR > 60.00
[2025-07-24 16:33] LABS: Platelet Count 85 10^3/uL (130-400)
[2025-07-24 17:03] VITALS: BP 124/74
[2025-07-24 18:15] VITALS: BP 127/84
== END 2025-07-24 18:48 | disposition home or self-care (01) ==
LOC: EMR 13:36
PROVIDERS: Nurse Practitioner; EMERGENCY PHYSICIAN Student in an Organized Health Care Education/Training Program; FAMILY PHYSICIAN Nurse Practitioner Family
DX: R10.9 Unspecified abdominal pain (principal); M54.50 Low back pain, unspecified; Z79.82 Long term (current) use of aspirin; Z87.440 Personal history of urinary (tract) infections
CPT/HCPCS: 99284; 74176; 80053; 81003; 83690; 85025

== ENCOUNTER 2025-08-04 20:39 | Inpatient (IN) | payer OTHER, SELFPAY ==
[2025-08-04 13:09] VITALS: BP 127/86
[2025-08-04 14:10] VITALS: BMI 28.4
[2025-08-04] MEDS: NSS 1000 IV ×2 (14:16→23:34)
[2025-08-04] MEDS: MORPHINE SULFATE 4 MG IV ×2 (14:16→19:22)
[2025-08-04 14:21] LABS: Urine Character Clear (Clear)
[2025-08-04 14:28] LABS: Hematocrit 39.5 % (39.0-52.0); Hemoglobin 12.9 g/dL (13.0-18.0); Mean Corp Hgb Conc. 32.7 g/dL (33.0-37.0); Mean Corpuscular Volume 97.8 fL (80.0-94.0); Platelet Count 100 10^3/uL (130-400); Red Cell Dist. Width 18.6 % (11.5-14.5)
[2025-08-04 14:41] LABS: ALT (SGPT) 24 U/L (0-50); AST (SGOT) 41 U/L (17-59); Albumin 4.1 g/dl (3.5-5.0); Alkaline Phosphatase 86 U/L (38-126); Blood Urea Nitrogen 9 mg/dl (9-20); Calcium 9.4 mg/dl (8.4-10.2); Carbon Dioxide 23 mmol/L (22-30); Chloride 109 mmol/L (98-107); Estimated Creatinine Clearance > 125 ml/min; Glucose 66 mg/dl (70-99); Potassium 4.4 mmol/L (3.5-5.1); Sodium 144 mmol/L (135-145); Total Protein 6.5 g/dl (6.3-8.2); eGFR > 60.00
[2025-08-04 14:52] LABS: Nucleated Red Blood Cells % 0 % (-)
--- NOTE | 2025-08-04 14:52 | ED.GENMED ---
History of Present Illness
<Gerhard Solorzano DO - Last Filed: 08/04/25 14:53>
General
Chief Complaint: Abdominal Pain
Time Seen by Provider: 08/04/25 13:22
<Kellen Almanza PA-C - Last Filed: 08/04/25 21:08>
General
Source: patient
Exam Limitations: none
Nursing documentation reviewed up to this point in time: agreed with
History of Present Illness
History of Present Illness:
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
History of UTI, multiple left hip revisions with complications including sepsis from a hip infection
Presents for the second time in a week for left-sided inguinal pain which is atraumatic, it feels like it goes through to his back but not down his leg. He notes some change in pain with position however he has chronic hip pain due to his poor
healing hip revision
When the patient was seen here a week ago he was mildly leukopenic, had a negative UA and culture dry CT that was negative. Patient was told it was likely musculoskeletal and he was given Vicodin.
The Vicodin did really help so he stopped taking it. He has been taking Tylenol and ibuprofen. Patient called his chief mechanical engineer and had outpatient labs because he was still having the pain
Some of the labs are drawn yesterday showing that he is neutropenic with an ANC of 800, white count of 1.9. He also called his urologist 2 days ago because he had a few hours of urinary incontinence where he felt the urge to urinate but could not
hold it. He was seated in a car when this was happening. Patient has experienced a urine symptom before with UTIs. He gave a urinalysis but does not know the result.
Patient does not have fever or chills though he has had some sweats, he denies diarrhea and constipation, he denies rash new in this region however he has his dermatitis scattered throughout skin
Patient has no leg weakness or numbness and he has not had continued urinary incontinence
Past History
<Gerhard Solorzano DO - Last Filed: 08/04/25 14:53>
Past History
ED Past Medical History: Other (Back pain) and Other (Previous splenic injury and hand surgery for,.)
Patient has exhibited threatening behavior?: No
Social History
Tobacco: Non-smoker
Alcohol: None
Drug: None
Personal:
Living: with family
Employment: Employed
Family History
Family History: Other
Review of Systems
<Kellen Almanza PA-C - Last Filed: 08/04/25 21:08>
Review of Systems
Allergies reviewed?: Yes
All Other Systems: Not applicable
Phy Exam
<Kellen Almanza PA-C - Last Filed: 08/04/25 21:08>
Physical Exam
Physical Exam:
GENERAL: Alert , in no apparent distress, comfortable at rest
HEAD: NCAT
NECK: no midline tenderness, active ROM intact, no paraspinal muscle tenderness;
CARDIAC: Regular rate and rhythm, no edema
LUNGS: Clear breath sounds bilaterally, no acute respiratory distress, no wheezes/rales/rhonchi
ABDOMEN: Soft, without focal tenderness, no r/g, no cvat, normal bowel sounds, nondistended
Patient is not significantly tender in his pelvis or inguinal region, there is normal pulse
NEUROLOGICAL: Alert and oriented, no focal neuro deficits, CN intact, 5/5 strength, sensation intact, ambulation slight limp left leg
SKIN: Warm and dry, there is erythematous papules scattered throughout all over his body
MUSCULOSKELETAL: No edema, well perfused. L hip has some bruising to the skin that looks old, faded, holguin
pt can fully range hip, he does have some pain with flexion and rotatoin;
rectal: no KEVEN performed but he has normal perianal tone and sensation; no skin chnages
: hydrocele, nontender
PSYCH: Normal and appropriate interaction.
Course
<Gerhard Solorzano, DO - Last Filed: 08/04/25 14:53>
Orders/Labs/Results
Orders:
Orders
08/04/25 14:07
0.9% Sodium Chloride 1000 ml [Nss] 1,000 ml IV BOLUS
Morphine Sulfate 4 mg IV NOW STA
08/04/25 14:10
Complete Blood Count/With Diff Urgent
Comprehensive Metabolic Panel Urgent
Lactic Acid Urgent
Urinalysis Reflex To Culture Urgent
Date Specimen was Collected: 08/04/25
Time Specimen was Collected: 14:01
Urine Microscopic Reflex Cult Urgent
Blood Culture Urgent
JAJA Source: Blood/Venous
Specimen Description:
Date Specimen was Collected: 08/04/25
Time Specimen was Collected: 14:01
08/04/25 14:17
MR Pelvis W/o & With Contrast Urgent
Comment:
Reason For Exam: L inguinal pain
Recent pill cam endoscopy?: No
08/04/25 14:52
0.9% Sodium Chloride 1000 ml [Nss] 1,500 ml IV BOLUS
08/04/25 14:58
Piperacillin/Tazo 3.375 Gram [Zosyn] 3.375 gram in 50 ml IV NOW
08/04/25 14:59
Vancomycin [Vancocin] 2,000 mg 0.9% Sodium Chloride 500 ml [Nss] 500 ml IV NOW
08/04/25 15:17
Blood Culture Urgent
JAJA Source: Blood/Venous
Specimen Description:
08/04/25 19:17
Morphine Sulfate 4 mg IV NOW STA
08/04/25 20:02
Admit/Transfer Patient As Directed
Co-Sign Provider:
Level of Care: Inpatient admission
Assign to:: Telemetry
Physician / Group: Emil
Diagnosis: L Hip Collection, Sepsis
Reason for Telemetry: Arrhythmia
Date to Stop Telemetry: 08/07/25
Time to Stop Telemetry: 11:00
Reason for Hospitalization: L Hip Collection, Sepsis
Expected length of stay greater than two midnights?: Yes
ELOS- Estimated Length of Stay in days: 3
I certify the patient meets the requirements for IP care: Yes
PRN Pain Medication Management As Directed
May give lesser potent ordered pain med per pt: Yes
preference::
Protocol:: Medication orders for pain may be administered in a
manner that supports deferring to patient preference
when the pt is:
- Requesting an ordered lesser potent pain medication.
Least to most potent pain medications are defined
as: acetaminophen < NSAID < tramadol < opioids
(morphine, oxycodone, hydromorphone).
- Requesting a lesser dose of the same medication IF
ORDERED.
- Requesting a less intrusive route of administration
if both routes are prescribed by the provider (PO <
IV).
08/04/25 20:05
Code Status As Directed
Resuscitation Status: Full Code
08/04/25 20:24
CXR2 [CR Chest - 2 Views ] Urgent
Comment:
Reason For Exam: Neutropenia, Sepsis
08/07/25 11:00
DC Protocol for Telemetry ONCE
Abnormal Lab Results
08/04/25
14:10
WBC 2.2 L* 10^3/uL
(4.8-10.8)
RBC 4.04 L 10^6/uL
(4.70-6.10)
Hgb 12.9 L g/dL
(13.0-18.0)
MCV 97.8 H fL
(80.0-94.0)
MCH 31.9 H pg
(27.0-31.0)
MCHC 32.7 L g/dL
(33.0-37.0)
RDW 18.6 H %
(11.5-14.5)
Plt Count 100 L 10^3/uL
(130-400)
Absolute Neuts (auto) 1.0 L 10^3/uL
(1.4-6.5)
Absolute Lymphs (auto) 0.8 L 10^3/uL
(1.2-3.4)
Monocytes % 13.8 H %
(1.7-9.3)
Chloride 109 H mmol/L
(98-107)
Glucose 66 L mg/dl
(70-99)
Lactic Acid 4.3 H* mmol/L
(0.7-2.0)
Urine Albumin (Reflex) 1+ A
(Neg - Trace)
08/04/25 14:10
08/04/25 14:10
Vital Signs
Initial and Last Documented VS:
Initial Vital Signs
Temp Pulse Resp BP Pulse Ox
36.9 C 115 20 127/86 96
08/04/25 13:09 08/04/25 13:09 08/04/25 13:09 08/04/25 13:09 08/04/25 13:09
Last Documented Vital Signs
Temp Pulse Resp BP Pulse Ox
36.9 C 121 23 113/81 96
08/04/25 17:10 08/04/25 16:30 08/04/25 16:30 08/04/25 19:10 08/04/25 19:30
<Kellen Almanza PA-C - Last Filed: 08/04/25 21:08>
Orders/Labs/Results
Orders:
Orders
08/04/25 14:07
0.9% Sodium Chloride 1000 ml [Nss] 1,000 ml IV BOLUS
Morphine Sulfate 4 mg IV NOW STA
08/04/25 14:10
Complete Blood Count/With Diff Urgent
Comprehensive Metabolic Panel Urgent
Lactic Acid Urgent
Urinalysis Reflex To Culture Urgent
Date Specimen was Collected: 08/04/25
Time Specimen was Collected: 14:01
Urine Microscopic Reflex Cult Urgent
Blood Culture Urgent
JAJA Source: Blood/Venous
Specimen Description:
Date Specimen was Collected: 08/04/25
Time Specimen was Collected: 14:01
08/04/25 14:17
MR Pelvis W/o & With Contrast Urgent
Comment:
Reason For Exam: L inguinal pain
Recent pill cam endoscopy?: No
08/04/25 14:52
0.9% Sodium Chloride 1000 ml [Nss] 1,500 ml IV BOLUS
08/04/25 14:58
Piperacillin/Tazo 3.375 Gram [Zosyn] 3.375 gram in 50 ml IV NOW
08/04/25 14:59
Vancomycin [Vancocin] 2,000 mg 0.9% Sodium Chloride 500 ml [Nss] 500 ml IV NOW
08/04/25 15:17
Blood Culture Urgent
JAJA Source: Blood/Venous
Specimen Description:
08/04/25 19:17
Morphine Sulfate 4 mg IV NOW STA
08/04/25 20:02
Admit/Transfer Patient As Directed
Co-Sign Provider:
Level of Care: Inpatient admission
Assign to:: Telemetry
Physician / Group: Emil
Diagnosis: L Hip Collection, Sepsis
Reason for Telemetry: Arrhythmia
Date to Stop Telemetry: 08/07/25
Time to Stop Telemetry: 11:00
Reason for Hospitalization: L Hip Collection, Sepsis
Expected length of stay greater than two midnights?: Yes
ELOS- Estimated Length of Stay in days: 3
I certify the patient meets the requirements for IP care: Yes
PRN Pain Medication Management As Directed
May give lesser potent ordered pain med per pt: Yes
preference::
Protocol:: Medication orders for pain may be administered in a
manner that supports deferring to patient preference
when the pt is:
- Requesting an ordered lesser potent pain medication.
Least to most potent pain medications are defined
as: acetaminophen < NSAID < tramadol < opioids
(morphine, oxycodone, hydromorphone).
- Requesting a lesser dose of the same medication IF
ORDERED.
- Requesting a less intrusive route of administration
if both routes are prescribed by the provider (PO <
IV).
08/04/25 20:05
Code Status As Directed
Resuscitation Status: Full Code
08/04/25 20:24
CXR2 [CR Chest - 2 Views ] Urgent
Comment:
Reason For Exam: Neutropenia, Sepsis
08/07/25 11:00
DC Protocol for Telemetry ONCE
Abnormal Lab Results
08/04/25
14:10
WBC 2.2 L* 10^3/uL
(4.8-10.8)
RBC 4.04 L 10^6/uL
(4.70-6.10)
Hgb 12.9 L g/dL
(13.0-18.0)
MCV 97.8 H fL
(80.0-94.0)
MCH 31.9 H pg
(27.0-31.0)
MCHC 32.7 L g/dL
(33.0-37.0)
RDW 18.6 H %
(11.5-14.5)
Plt Count 100 L 10^3/uL
(130-400)
Absolute Neuts (auto) 1.0 L 10^3/uL
(1.4-6.5)
Absolute Lymphs (auto) 0.8 L 10^3/uL
(1.2-3.4)
Monocytes % 13.8 H %
(1.7-9.3)
Chloride 109 H mmol/L
(98-107)
Glucose 66 L mg/dl
(70-99)
Lactic Acid 4.3 H* mmol/L
(0.7-2.0)
Urine Albumin (Reflex) 1+ A
(Neg - Trace)
08/04/25 14:10
08/04/25 14:10
Vital Signs
Initial and Last Documented VS:
Initial Vital Signs
Temp Pulse Resp BP Pulse Ox
36.9 C 115 20 127/86 96
08/04/25 13:09 08/04/25 13:09 08/04/25 13:09 08/04/25 13:09 08/04/25 13:09
Last Documented Vital Signs
Temp Pulse Resp BP Pulse Ox
36.9 C 121 23 113/81 96
08/04/25 17:10 08/04/25 16:30 08/04/25 16:30 08/04/25 19:10 08/04/25 19:30
<Kellen Almanza PA-C - Last Filed: 08/04/25 21:08>
MDM/Problems Addressed
Differential Diagnosis Includes:
sepsis, prostatitis, uti, hip infection, hernia
MDM/Problems Addressed:
65 y/o M
immunocompromised
here with L inguinal/lower pelvic pain x 1 week no trauma
screening w/u last week unremarkable
had outpatient labs showeing worsening leukopenia/neutropenia and was told to come in
some subjective sweats
also ? urinary incontience for a few hours 2 days ago that resolved
pt has rectal tone, no back tenderness
did not perform prostate exam as i initially supspected he had prostatitis with the urinary sypmtoms and infectious picture
but he had anal senstion and tone
PVR 90 ml
normal leg strength
some discolroation L hip
d/w ed attening
MRI with contrast of pelvis due to pt's allergy to ct dye
he does have some mild neutropenia and lactic acidosis
given sepsis fludis and abx early
mri showed recurrent colection L hip
he had it drained by IR here a few weeks ago
cultures were neg at that time
will admit for IVabx and IR consult
he does have scrotal swelling without tendenrss, no hernia palpated; has h/o hydroceles
<Gerhard Solorzano DO - Last Filed: 08/04/25 14:53>
*Pulse Oximetry
SaO2: 98
Oxygen Mode of Delivery: Room air
<Kellen Almanza PA-C - Last Filed: 08/04/25 21:08>
*Pulse Oximetry
Patient hypoxic: no (96)
*Critical Care Note
Total Time (30-74mins, 75-104mins- exclusive of procedures): Not Applicable
ED Attending Note
<Gerhard Solorzano DO - Last Filed: 08/04/25 14:53>
ED Attending Note
Patient seen and examined by attending physician: Yes
I performed the substantive portion of visit, reviewed & personally made and approve the management plan that is documented in note by myself or SREEKANTH.: Yes
ED Attending Note:
Seen with PA examined independently subacute onset of abdominal pain treated for UTI urinary frequency's undergone several hip surgeries
Has anaphylaxis from IV contrast
Plan be labs cultures will try to get an MRI
-
Portions of this chart may have been created with voice recognition software.� Occasional wrong word or��sound alike� substitutions may have occurred due to the inherent limitations of voice recognition software.
Discharge Plan
Departure
Patient Disposition: Admit
Date of Disposition: 08/04/25
Time of Disposition: 19:03
Admit to: Med/Surg
Presentation/result/management discussed w/ accepting MD/DO: Hospitalist
Condition: Fair
Covid-19: Not Applicable
Discharge Problem:
Sepsis, Abscess of hip
Interventions
Interventions:
*Risk Screen - Suicide Last Done: 08/04/25 13:09
*General Assessment Last Done: 08/04/25 13:09
*Neglect/Abuse Screening Last Done: 08/04/25 13:09
HE-Zghuso-Gvvbopcect Assessment Last Done: 08/04/25 14:46
[2025-08-04 14:58] LABS: Urine White Cell 0-2 /HPF (0-5)
[2025-08-04 14:59] LABS: Urine Red Blood Cell 0-2 /HPF (0-2)
[2025-08-04 15:00] VITALS: BP 110/80
[2025-08-04] MEDS: NSS 1500 IV (15:13)
[2025-08-04] MEDS: ZOSYN 50 IV (15:33)
[2025-08-04 16:00] VITALS: BP 110/57
[2025-08-04] MEDS: VANCOCIN IV (17:15)
[2025-08-04] MEDS: VANCOCIN 540 MG IV (18:31)
[2025-08-04 19:10] VITALS: BP 113/81
--- NOTE | 2025-08-04 20:16 | HPS.HSE ---
Family Physician
-
Family Physician: INTERVIEWE UNKNOWN - PT NOT
Chief Complaint
-
L Inguinal Pain
History of Present Illness
Patient is a 65y M with PMH significant for psoriatic arthritis, permanent A-Fib and granulomatous dermatitis who presents to ED complaining of L groin pain x 2 weeks. Patient reports pain in the L inguinal / groin area that radiates straight
through to the back. Pain is worse with standing / walking. He reports general malaise and poor appetite for the past 2 weeks as well. With worsening symptoms, patient presented to the ED this evening for evaluation.
Patient was admitted in May of this year with sepsis and similar collection was discovered. His sepsis at that time was attributed to Citrobacter UTI. IR aspirate of the L hip collection was sterile. Notably, patient did not have hip / groin
pain at the time of that admission.
Patient states that he had two episodes of urinary incontinence on Thursday as well as some transient hematuria. He spoke with his Urologist (Dr. Bush) and had outpatient labs done. He is awaiting those results. He has not had further urinary
symptoms since that time.
He denies any other focal complaints including fevers / chills, cough / SOB, abdominal pain, N/V/D.
Medical History
Past Medical History
Past Medical History: Reports Other
Additional Past Medical History:
Psoriatic Arthritis
Granulomatous Dermatitis
Pancytopenia
Permanent Atrial Fibrillation
Past Surgical History: Reports Other
Additional Past Surgical History:
Left HUSSAIN (12/2024) - Dislocated x 5 post-op (Dr. Ni Arellano)
Left HUSSAIN Revision (04/2025) - Complicated by post-op bleeding and SUPERFICIAL Staph infection
Social History
Tobacco: Non-smoker
Alcohol: None
Drug: None
Family History
Family History: Not pertinent
Allergies / Home Medications
Allergies reflects when Allergies were last updated in [facility].
Home Medications with original date entered in [facility] [facility]
Allergy/Medication List:
Allergies
Allergy/AdvReac Type Severity Reaction Status Date / Time
adhesive Allergy TAPE-RASH Verified 08/04/25 13:12
apricot Allergy Hives Verified 08/04/25 13:12
cefazolin Allergy anaphylaxis Verified 08/04/25 13:12
on
03/15/25;
tolerates
amoxicillin
Iodinated Contrast Media Allergy HEART STOPS Verified 08/04/25 13:12
(Iodinated Contrast Media -
IV Dye)
iodine (Iodine) Allergy HEART Verified 08/04/25 13:12
STOPS FROM
IVP
Latex, Natural Rubber Allergy Unknown Verified 08/04/25 13:12
levofloxacin (From Levaquin) Allergy achilles Verified 08/04/25 13:12
tendon pain
Home Medications
acetaminophen 500 mg tablet (Tylenol Extra Strength) 1,000 mg PO BID@1200,0000 Pain 06/08/25
aspirin 81 mg tablet,delayed release 81 mg PO BID@1200,0000 Blood Clot Prevention/Tx 06/08/25
hydroxychloroquine 200 mg tablet 200 mg PO BID Autoimmune Disorder 06/08/25
ibuprofen 200 mg tablet (Advil) 400 mg PO BID@1200,0000 Pain 06/08/25
metoprolol tartrate 25 mg tablet 25 mg PO BID@1200,0000 Blood Pressure 06/08/25
Review of Systems
-
History Source: Patient
A 12 point ROS was completed and negative except as noted: Yes
Constitutional: Reports Fatigue; Denies Fever or Chills
Respiratory: Denies Cough or Trouble Breathing
Cardiac: Denies Chest Pain or Palpitations
Abdomen/GI: Reports Anorexia; Denies Abdominal Pain, Nausea, Vomiting, Diarrhea, Bloody Stools or Black Stools
: Reports Incontinence and Bleeding; Denies Dysuria or Flank Pain
Musculoskeletal: Reports Joint Pain; Denies Edema
Skin: Reports Itching and Rash
Neurological: Denies Dizzy or Headache
Psych: Denies Depression or Anxiety
Physical Exam
Vital Signs
Vital Signs
Temp Pulse Resp BP Pulse Ox
98.4 F 121 23 113/81 96
08/04/25 17:10 08/04/25 16:30 08/04/25 16:30 08/04/25 19:10 08/04/25 19:30
Physical Exam
General: Other (65y M in no acute distress.)
HEENT: Moist mucous membranes, PERRLA and Other (Injected sclera bilaterally.)
Respiratory: Other (Few coarse breath sounds R upper lung zones. No wheezing or rales.)
Cardiac: S1/S2, Irregular Rhythm, Tachycardia and Murmur (II/ BRENNAN)
GI: Soft, Non Tender, Non Distended and Normal Bowel Sounds
Musculoskeletal: No Clubbing, No Cyanosis and Other (L hip incision well-healed. Some discomfort with internal rotation - otherwise good ROM without pain.)
Skin: Other (Diffuse granulomatous rash / raised papular rash - chronic.)
Neuro: AO x 3
Laboratory Results
-
08/04/25 14:10
08/04/25 14:10
Laboratory Results
Lactic Acid 4.3 mmol/L (0.7-2.0) H* 08/04/25 14:10
Total Bilirubin 0.7 mg/dl (0.2-1.3) 08/04/25 14:10
AST 41 U/L (17-59) 08/04/25 14:10
ALT 24 U/L (0-50) 08/04/25 14:10
Alkaline Phosphatase 86 U/L (38-126) 08/04/25 14:10
Impression/Plan
-
A/P: Patient is a 65y M with PMH significant for psoriatic arthritis / granulomatous dermatitis and complicated L HUSSAIN who presents to ED complaining of L groin pain and malaise x 2 weeks.
Lactic Acidosis / Suspected Sepsis
Left Hip Collection
Complicated L HUSSAIN (12/2024 and 04/2025)
- Admit for further evaluation and treatment.
- Patient presents with leukopenia (chronic), tachycardia (known A-Fib) and elevated lactate level (4.3).
- Recent urinary symptoms; however, UA is unremarkable.
- New L groin / inguinal pain and imaging today re-demonstrates collection seen in May.
- No other evident source of infection.
- Check CXR for completeness though patient denies cough / dyspnea (abnormal lung sounds noted on exam).
- IVF support and follow serial lactate for improvement.
- Chronic autoimmune disorder but has been off of his usual Rinvoq since March of this year due to ongoing issues with his L hip.
- Received initial doses of Vanco / Zosyn in the ED. Would hold further abx for now pending culture results / directed therapy.
- ID consulted for additional recommendations.
- IR consulted for repeat aspiration of the L hip collection.
- Ortho consulted for additional recommendations.
- Follow for any new / focal symptoms or complaints.
Pancytopenia
Psoriatic Arthritis
Granulomatous Dermatitis
- Chronic cell count changes appreciated. ANC now 1000 which is new / worse from prior baseline.
- Likely secondary to med effect - Rinvoq +/- hydroxychloroquine.
- Rinvoq on hold since March. Hold hydroxychloroquine for now as well.
- Follow cell counts for changes.
- Patient followed by Dr. Talavera as an outpatient.
Permanent Atrial Fibrillation
- Rates around 100 bpm.
- Continue current med regimen of metoprolol and ASA BID.
- Patient has discussed / declined OAC in the past.
- Monitor on telemetry.
DVT Prophylaxis: SCDs
Code Status: Full
[2025-08-04 22:32] VITALS: BP 125/71
[2025-08-04 23:21] VITALS: BP 151/88
[2025-08-04 23:22] VITALS: BMI 29.1
[2025-08-04] MEDS: LOPRESSOR 25 MG PO (23:33)
[2025-08-05] VITALS (7 sets, daily range): BP systolic 70–148; BP diastolic 72–94; BMI 29.1; BMI 29.2
[2025-08-05] MEDS: MORPHINE SULFATE 2 MG IV (00:05)
--- NOTE | 2025-08-05 00:15 | PTCARENOTE ---
Pt received from ED via stretcher w/spouse. Ambulated to bed independently (somewhat awkward gait) reports L hip stiffness. Telemetry = afib HR 120s-140s. AAOx3, mildly anxious. Oriented to surroundings and plan of care discussed. Admission and
assessment completed (refer to worklist). Outstanding labs obtained and sent. #20 RAC flushed and patent. #20 LAC w/NSS at 125 mL/hr infusing w/o complication. Skin assessment completed w/2nd RN. Back covered w/brownish flat rash, pt reports
derms states granuloma. UE reddened bilaterally. PO lopressor and IV morphine given per orders (refer to MAR). Safe environment maintained, call arnie w/in reach.
[2025-08-05 00:26] LABS: C-Reactive Protein 11.70 mg/L (0.0-10.00)
[2025-08-05] MEDS: ASPIR LOW (ENTERIC COATED) 81 MG PO ×3 (00:43→23:08)
[2025-08-05 00:57] LABS: PSA, Total - Screen 0.25 ng/ml (0.0-4.0)
[2025-08-05] MEDS: LOPRESSOR 5 MG IV (02:04)
[2025-08-05] MEDS: TYLENOL 650 MG PO ×2 (02:10→17:34)
[2025-08-05 06:53] LABS: Hematocrit 32.8 % (39.0-52.0); Hemoglobin 10.8 g/dL (13.0-18.0); Mean Corp Hgb Conc. 32.9 g/dL (33.0-37.0); Mean Corpuscular Volume 99.4 fL (80.0-94.0); Nucleated Red Blood Cells % 0 % (-); Platelet Count 82 10^3/uL (130-400); Red Cell Dist. Width 18.8 % (11.5-14.5)
[2025-08-05 07:02] LABS: ALT (SGPT) 22 U/L (0-50); AST (SGOT) 39 U/L (17-59); Albumin 3.2 g/dl (3.5-5.0); Alkaline Phosphatase 78 U/L (38-126); Blood Urea Nitrogen 13 mg/dl (9-20); Calcium 8.6 mg/dl (8.4-10.2); Carbon Dioxide 25 mmol/L (22-30); Chloride 105 mmol/L (98-107); Estimated Creatinine Clearance > 125 ml/min; Glucose 99 mg/dl (70-99); Potassium 4.2 mmol/L (3.5-5.1); Sodium 135 mmol/L (135-145); Total Protein 5.4 g/dl (6.3-8.2); eGFR > 60.00
--- NOTE | 2025-08-05 08:26 | W.PN.HOSP.TC ---
Today's Communication/Plan
-
pending Ortho and ID eval
Might not need IRAD if ortho will aspirate joint
cont to hold Abx until aspiration
Bladder US
Assessment / Plan
Assessment / Plan
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
L inguinal pain, MRI showed persistent left hip fluid collection measuring approximately 6.3 x 8.0 x 9.1 cm communicating to L joint.
A/P:
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
with increased lactate on admission concern for early developing sepsis, Abx held since previous Cx were negative, so to increase yield of new cultures
Ortho and ID consult
Pain mgmt
PT/OT
Recent CT abd could not exclude urinary bladder calculus - order US
#Chronic pancytopenia
#Macrocytosis
Check folate, B12
suspect 2/2 autoimmune disease vs iatrogenic
follow outpatient with [facility]
#Afib, permanent
On ASA
follow with established healthcare social worker
#Psoriatic arthritis
#Granulomatious dermatitis
cont home meds and follow up with established cash accountant
DVT ppx SCDs
Full code
Torsten mcclain spent at least 54min reviewing chart, test results, communication with consultants and providing direct patient care
Anticipated Discharge: 24 - 48 hours
Subjective/Interval History
-
Date of Service: August 05, 2025
Objective Data
-
Labs:
Laboratory Results
08/05/25
05:47
WBC 2.5 L
Hgb 10.8 L
Hct 32.8 L
Plt Count 82 L
Sodium 135 D
Potassium 4.2
Chloride 105
Carbon Dioxide 25
BUN 13
Creatinine 0.6 L
Glucose 99
Calcium 8.6
Total Bilirubin 1.1
AST 39
ALT 22
Alkaline Phosphatase 78
Vital Signs:
Vital Signs
Temp Pulse Resp BP Pulse Ox
98.1 F 98 20 148/94 98
08/05/25 07:55 08/05/25 07:55 08/05/25 07:55 08/05/25 07:55 08/05/25 07:55
I&O
08/04/25 08/05/25 08/06/25
06:59 06:59 06:59
Intake Total 1040 / 1040
Output Total 475 / 475
Balance 565 / 565
Review of Systems
-
History Source: Patient
All other systems: Reviewed and negative
Musculoskeletal: Reports Other (L inguinal pain)
--- NOTE | 2025-08-05 09:58 | CON.ORTHO ---
Consultation
-
Date/Time Consultation Performed: 08/05/2025 900 AM
Consultation - Orthopedics
History
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 He was admitted to the hospital service. Orthopedics was consulted
for further evaluation and treatment. Patient does have a history of primary left total hip arthroplasty performed by Dr. Jaylen Dan at [facility] in December 2024. He sustained multiple dislocation events and ultimately underwent revision
left total hip arthroplasty in April. Postoperative course was then complicated by incisional bleeding as well as superficial infection treated with antibiotics. He presented to the emergency department in May underwent imaging concerning for
fluid collection in the area of his hip prosthesis. He underwent aspiration that was not concerning for infection at that time. More recently presented to the emergency department couple of weeks ago with left groin pain and back pain. Repeat MRI
this hospitalization confirmed recurrent fluid collection. Patient reports he has pain with ambulation. He actually underwent right total hip arthroplasty in the past as well and reports that left hip has not felt the same.
Allergies / Home Medications
Past medical history: Psoriatic arthritis, granulomatosis dermatitis, A-fib not on anticoagulation
Past surgical history: Right total hip arthroplasty, left total hip arthroplasty, left total hip arthroplasty revision
Family history: Not pertinent
Social history: , non-smoker, lives with family
Allergy/AdvReac Type Severity Reaction Status Date / Time
adhesive Allergy TAPE-RASH Verified 08/04/25 13:12
apricot Allergy Hives Verified 08/04/25 13:12
cefazolin Allergy anaphylaxis Verified 08/04/25 13:12
on
03/15/25;
tolerates
amoxicillin
Iodinated Contrast Media Allergy HEART STOPS Verified 08/04/25 13:12
(Iodinated Contrast Media -
IV Dye)
iodine (Iodine) Allergy HEART Verified 08/04/25 13:12
STOPS FROM
IVP
Latex, Natural Rubber Allergy Unknown Verified 08/04/25 13:12
levofloxacin (From Levaquin) Allergy achilles Verified 08/04/25 13:12
tendon pain
�Medication �Instructions �Recorded
acetaminophen 500 mg tablet 1,000 mg PO BID@1200,0000 Pain 06/08/25
(Tylenol Extra Strength)
aspirin 81 mg tablet,delayed 81 mg PO BID@1200,0000 Blood Clot 06/08/25
release Prevention/Tx
hydroxychloroquine 200 mg tablet 200 mg PO BID Autoimmune Disorder 06/08/25
ibuprofen 200 mg tablet (Advil) 400 mg PO BID@1200,0000 Pain 06/08/25
metoprolol tartrate 25 mg tablet 25 mg PO BID@1200,0000 Blood 06/08/25
Pressure
Vital Signs / Lab Results
Temp Pulse Resp BP Pulse Ox
98.1 F 98 20 148/94 98
08/05/25 07:55 08/05/25 07:55 08/05/25 07:55 08/05/25 07:55 08/05/25 07:55
08/05/25 05:47
08/05/25 05:47
10 point review systems reviewed and negative unless otherwise stated
General: Pleasant, no acute distress supine in bed
Musculoskeletal left lower extremity
Well-healed lateral based surgical incision, no erythema or ecchymotic staining, no significant palpable warmth
Hip moves freely with passive internal and external rotation without eliciting any pain, able to flex hip to about 120 degrees without significant pain
No palpable ipsilateral knee effusion
Positive EHL, FHL, ankle dorsi action, plantarflexion
Sensation intact to light touch in all distributions distally
Brisk cap refill
Leg lengths clinically equal
Diagnostic studies
CRP 11.7, ESR 8
MRI of left hip reveals rim-enhancing fluid collection measuring 6.3 x 8 x 9.1 cm communicating with the hip joint
Assessment / Plan
65-year-old male history of psoriatic arthritis, granulomatosis dermatitis, A-fib status post multiple left total hip arthroplasty procedures with left hip fluid collection. I did have a long discussion with the patient regarding diagnosis and
treatment options. He does seem to be quite frustrated with his function and pain after his most recent surgeries. There is some concern regarding infection. Previous aspiration was not concerning for infection. He actually has a normal ESR. I
did discuss with the primary team. Unfortunately we do not have the capability of alpha defensin and to be performed during this hospitalization. I would recommend proceeding with aspiration of fluid collection for synovial fluid analysis, culture
and Gram stain. Ultimately I do think that he really should follow-up with his index surgeon to discuss possibilities potentially obtain outpatient aspiration where alpha defensin study can be performed. Will follow-up IR aspiration results. If
you were to require any type of revision procedure secondary to infection, would recommend transfer to his index surgeon at [facility]. Please reach out any questions or concerns
[2025-08-05] MEDS: NSS IV (09:59)
[2025-08-05] MEDS: LOPRESSOR 25 MG PO ×2 (10:55→23:09)
--- NOTE | 2025-08-05 11:29 | CON.ID ---
Consultation
-
Date/Time Consultation Requested: 08/04/2025 2308
Date/Time Consultation Performed: 08/04/2025 1129
Requesting Provider: Dr. Stein
Performing Provider: Dr. Tom
Reason for Consultation: Possible prosthetic joint infection
Chief Complaint / Past History
History of Present Illness
Guanako Oneal is a 65-year-old man with a significant past medical arthritis and granulomatosis dermatitis being evaluated at request of Dr. Eden in regards to possible prosthetic joint infection. History is obtained from chart review, along with
patient interview.
The patient reports that he underwent left hip replacement middle in December 2024. Following that he had multiple dislocations of the hip and underwent a revision surgery although during that initial revision surgery he developed 'anaphylaxis' due
to an unknown medication and the revision was postponed for approximately 1 month's time. Following that revision he developed postop bleed 'superficial' staph infection.
Since that time, he has had ongoing discomfort in the left hip. He presented to the emergency room here last on hospital approximately 1 week ago for evaluation of left-sided abdominal pain with radiation to the back which has been present for
approximately 1 week at that point. The provider felt his symptoms were related to musculoskeletal pain and the patient was discharged to follow-up with his PCP. He presents back yesterday for progressive fatigue, lethargy, poor appetite and
ongoing left inguinal pain that radiated to his back. MRI imaging revealed a left hip complex fluid collection, and the area was aspirated earlier today with recovery of 70 cc of thin dark yellow fluid. Culture sent. At this point in time he
notes some improvement in the left hip discomfort, along with decreased back discomfort. He denies any recent fevers or chills.
Past History
Additional Past Medical History:
Psoriatic Arthritis
Granulomatous Dermatitis
Pancytopenia
Permanent Atrial Fibrillation
Additional Past Surgical History:
Left HUSSAIN (12/2024) - Dislocated x 5 post-op (Dr. Ni Arellano)
Left HUSSAIN Revision (04/2025) - Complicated by post-op bleeding and SUPERFICIAL Staph infection
Allergy History:
adhesive Allergy (Verified 08/04/25 13:12)
TAPE-RASH
apricot Allergy (Verified 08/04/25 13:12)
Hives
cefazolin Allergy (Verified 08/04/25 13:12)
anaphylaxis on 03/15/25; tolerates amoxicillin
Iodinated Contrast Media (Iodinated Contrast Media - IV Dye) Allergy (Verified 08/04/25 13:12)
HEART STOPS
iodine (Iodine) Allergy (Verified 08/04/25 13:12)
HEART STOPS FROM IVP
Latex, Natural Rubber Allergy (Verified 08/04/25 13:12)
Unknown
levofloxacin (From Levaquin) Allergy (Verified 08/04/25 13:12)
achilles tendon pain
Medications Reviewed: Yes
Current Antibiotics:
None
(Received single dose of vancomycin and Zosyn in ER)
Social History
Tobacco: Former Smoker
Alcohol: None
Drug: None
Personal:
Living: With Family
Employment: Employed
Family History
Family History: Not Pertinent
Review of Systems
Vital Signs
Temp Pulse Resp BP Pulse Ox
98.1 F 128 20 159/89 98
08/05/25 07:55 08/05/25 10:55 08/05/25 07:55 08/05/25 10:55 08/05/25 07:55
Physical Exam
Physical Exam
Constitutional: No Acute Distress, Comfortable and Non-toxic
Eyes: No Conjunctival Hemorrhage and Sclera Anicteric
Cardiovascular: S1/S2; Negative S3/S4
Pulmonary: Clear; Negative Wheezes, Rales or Rhonchi
Gastrointestinal: Soft, Non Tender, Non Distended and Normal Bowel Sounds
Skin: Rash
Neurological: Awake, Alert and Oriented
Psychological: Calm
Lab / Diagnostic Study Results
08/05/25 05:47
08/05/25 05:47
Abs Immat Gran (auto) 0.1 10^3/uL (0-0.05) H 08/05/25 05:47
Absolute Neuts (auto) 1.6 10^3/uL (1.4-6.5) 08/05/25 05:47
Absolute Lymphs (auto) 0.4 10^3/uL (1.2-3.4) L 08/05/25 05:47
Absolute Monos (auto) 0.4 10^3/uL (0.1-0.6) 08/05/25 05:47
Absolute Basos (auto) 0.0 10^3/uL (0-0.2) 08/05/25 05:47
Immature Gran % 2.0 % (0-0.5) H 08/05/25 05:47
Neutrophils % 61.8 % (42.2-75.2) 08/05/25 05:47
Lymphocytes % 16.5 % (20.5-51.1) L 08/05/25 05:47
Monocytes % 16.9 % (1.7-9.3) H 08/05/25 05:47
Eosinophils % 1.2 % (0-6) 08/05/25 05:47
Basophils % 1.6 % (0-2) 08/05/25 05:47
ESR 8 mm/hour (0-20) 08/04/25 23:59
Lactic Acid Cancelled 08/05/25 11:08
C-Reactive Protein 11.70 mg/L (0.0-10.00) H 08/04/25 23:59
Ur Squamous Epith Cells 3-5 /LPF (Few) 08/04/25 14:10
Microbiology Results
Micro:
08/05/25 03:22 MRSA Screen - Pending
Nose
08/04/25 15:17 Blood Culture - Pending
Blood/Venous
08/04/25 14:10 Blood Culture - Pending
Blood/Venous
Laboratory Tests
left hip aspiration 08/05/25
12:00
Fluid WBC 336
Fluid Mononuclear Cell 87.2
Fl Polymorphonucl Cell 12.8
Imaging:
08/05/2025 Bladder ultrasound: large volume urinary bladder postvoid residual, trabeculated urinary bladder and small right-sided diverticulum noted. Small urinary bladder calculus suspected on recent CT scan is not seen. Please see full dictation
for additional detail.
08/04/2025 CXR (2 view): no acute cardiopulmonary process seen.
08/04/2025 MRI pelvis with and without contrast: bilateral hip arthroplasties with associated susceptibility artifact limits evaluation of these regions. There is a left hip complex fluid collection extending along the anterior lateral aspect of the
proximal left femur measuring approximately 6.3 x 8.0 x 9.1 cm which communicates with the hip joint. It demonstrates rim enhancement.
Assessment / Plan
Right hip fluid collection
- Fluid analysis consistent with seroma. Infection less likely given paucity of neutrophils (even despite neutropenia)
Psoriatic Arthritis
Granulomatous Dermatitis
Pancytopenia
Permanent Atrial Fibrillation
Recommendations:
Would continue to observe off antibiotics at this point in time.
Monitor pending cultures.
Follow white count and temperature curve.
--- NOTE | 2025-08-05 12:00 | W.PN.UPDATE ---
Update Note
Progress Note Update
Asked to see patient re: pancytopenia. He's off the floor.
Chart reviewed. He's had ongoing pancytopenia since Dec 2024, which corresponds with his first left hip arthroplasty. He's had ongoing issues, including dislocations, concerns for infection, and revision surgery. No obvious infection has been
confirmed, but suspected, with ongoing fluid around the joint. He's readmitted with the same. He also has granulomatous dermatitis and psoriatic arthritis, on HCQ as an outpatient.
Suspect pancytopenia is from marrow suppression related to autoimmune diseases and HCQ, and chronic inflammation/infection. Will await B12/folate and check flow cytometry.
Full consult to follow tomorrow.
[2025-08-05 12:40] LABS: Body Fluid Second Tech DW
--- NOTE | 2025-08-05 15:38 | CM ---
Patient seen at bedside with also present. Patient states that he lives with in a 2 story home, Patient has had no past DME or VN or SNf needs. Patient plan is for discharge planning needs. Patient PCP is Dr. Ramos and he uses the [facility]
on . CM will continue to follow for discharge planning needs.
Plan; home with no needs anticipated.
[2025-08-05 18:41] LABS: Folate 5.7 ng/ml (2.76-20); Vitamin B12 > 1000 pg/ml (239-931)
[2025-08-06 03:11] VITALS: BP 118/79
[2025-08-06 06:00] VITALS: BMI 28.6
[2025-08-06 07:55] VITALS: BP 128/82
[2025-08-06 08:35] LABS: Hematocrit 33.5 % (39.0-52.0); Hemoglobin 11.1 g/dL (13.0-18.0); Mean Corp Hgb Conc. 33.1 g/dL (33.0-37.0); Mean Corpuscular Volume 98.5 fL (80.0-94.0); Nucleated Red Blood Cells % 0 % (-); Platelet Count 78 10^3/uL (130-400); Red Cell Dist. Width 18.3 % (11.5-14.5)
[2025-08-06 08:54] LABS: ALT (SGPT) 22 U/L (0-50); AST (SGOT) 33 U/L (17-59); Albumin 3.4 g/dl (3.5-5.0); Alkaline Phosphatase 69 U/L (38-126); Blood Urea Nitrogen 8 mg/dl (9-20); Calcium 9.3 mg/dl (8.4-10.2); Carbon Dioxide 27 mmol/L (22-30); Chloride 103 mmol/L (98-107); Estimated Creatinine Clearance > 125 ml/min; Glucose 181 mg/dl (70-99); Potassium 3.9 mmol/L (3.5-5.1); Sodium 135 mmol/L (135-145); Total Protein 5.7 g/dl (6.3-8.2); eGFR > 60.00
[2025-08-06] MEDS: TYLENOL 650 MG PO (09:21)
--- NOTE | 2025-08-06 09:26 | W.PN.HOSP.TC ---
Today's Communication/Plan
-
Pending further ID recommendations
Seroma mgmt can be done as outpatient
Assessment / Plan
Assessment / Plan
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
L inguinal pain, MRI showed persistent left hip fluid collection measuring approximately 6.3 x 8.0 x 9.1 cm communicating to L joint. Pain most likely 2/2 this collection as it was relieved right away after drain
A/P:
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
with increased lactate on admission concern for early developing sepsis, Abx held since previous Cx were negative, so to increase yield of new cultures
Ortho and ID consult
s/p fluid drain by IRAD on 08/05/25 - pain relieved right away, however later started to reappear. Fluyid Cx with neg gram stain, neg organisms and 336 WBC predominantly mononuclear - most liekly seroma. A sper ID - hold off Abx
Pain mgmt
PT/OT
Recent CT abd could not exclude urinary bladder calculus - ordered US - no bladder stone, but diverticuli - outpatient Urologist recommended
#Chronic pancytopenia
#Macrocytosis
Check folate, B12
suspect 2/2 autoimmune disease vs iatrogenic
follow outpatient with Research Assistant
Research Assistant sent leukemia/lymphoma panel
#Afib, permanent
On ASA
follow with established tail board man
#Psoriatic arthritis
#Granulomatous dermatitis
cont home meds and follow up with established program assistant
DVT ppx SCDs
Full code
I johny spent at least 36min reviewing chart, test results, communication with consultants and providing direct patient care
Anticipated Discharge: Within 24 hours
Subjective/Interval History
-
Date of Service: August 06, 2025
Objective Data
-
Labs:
Laboratory Results
08/06/25
08:16
WBC 2.8 L
Hgb 11.1 L
Hct 33.5 L
Plt Count 78 L
Sodium 135
Potassium 3.9
Chloride 103
Carbon Dioxide 27
BUN 8 L
Creatinine 0.6 L
Glucose 181 H
Calcium 9.3
Total Bilirubin 1.5 H
AST 33
ALT 22
Alkaline Phosphatase 69
Vital Signs:
Vital Signs
Temp Pulse Resp BP Pulse Ox
99.6 F 107 20 128/82 98
08/06/25 07:55 08/06/25 07:55 08/06/25 07:55 08/06/25 07:55 08/06/25 07:55
I&O
08/05/25 08/06/25 08/07/25
06:59 06:59 06:59
Intake Total 1040 / 1040 2400 / 2400
Output Total 475 / 475 225 / 225
Balance 565 / 565 2175 / 2175
Review of Systems
-
History Source: Patient
All other systems: Reviewed and negative
Physical Exam
-
General: No Apparent Distress
HEENT: Normocephalic
Neuro: Awake, Alert, Oriented and AO x 3
Psych: Calm
--- NOTE | 2025-08-06 10:35 | W.DCSUMMARY ---
Addendum entered and electronically signed by Jose Corona MD 08/06/25 10:41:
Please dont use billing under this PN, use discharge summary billing instead
Original Note:
Discharge Summary
Discharge Data
Date of Admission: 08/04/25
Date of Discharge: 08/06/25
-
Pending Results: No
Hospital Course
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
L inguinal pain, MRI showed persistent left hip fluid collection measuring approximately 6.3 x 8.0 x 9.1 cm communicating to L joint. Pain most likely 2/2 this collection as it was relieved right away after drain. Same agreed with ID and patient to
be d/c off abx recommended to be followed by his previosu ortho . Hematology referral provided to follow up further pancytopenia w/u
I have spent at least 36min reviewing chart, test results, communication with consultants and providing direct patient care
Patient was managed for:
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
#Urinary bladder trabeculation and diverticuli - outpatient Urologist recommended
#Chronic pancytopenia
#Macrocytosis
#Afib, permanent
#Psoriatic arthritis
#Granulomatous dermatitis
Discharge Plan
-
Patient Disposition: Home (Routine Discharge)
Discharge Diagnosis/Procedures: L hip seroma
Diet: Low Cholesterol
Referrals:
Noel Chase MD [Active, Urology] - in two to four weeks
Referral Note: Urinary bladder trabeculation, diveiculi -for cystoscopy
Valeria Saunders MD [Active, Oncology] - in three to four weeks
Referral Note: pancytopenia
Jaylen Dan MD [Non-Admitting Privileges, Orthopedics] - in two to four weeks
Referral Note: for L hip seroma
UNKNOWN - PT NOT,INTERVIEWE [Family Provider]
Prescriptions:
Continued
aspirin 81 mg Tablet,Delayed Release (Dr/Ec)
81 mg PO BID@1200,0000
acetaminophen [Tylenol Extra Strength] 500 mg Tablet
1,000 mg PO BID@1200,0000
hydroxychloroquine 200 mg Tablet
200 mg PO BID
metoprolol tartrate 25 mg Tablet
25 mg PO BID@1200,0000
Discontinued
ibuprofen [Advil] 200 mg Tablet
400 mg PO BID@1200,0000
Discharge Orders:
Discharge Patient (As Directed); Ordered 08/06/25
Ordered By: Jose Corona
Discharge Date and Time
Print Language: KYRGYZ
--- NOTE | 2025-08-06 10:38 | CON.ONC ---
Consultation
-
Date Consultation Requested: 08/06/25
Date Consultation Performed: 08/05/25
Requesting Provider: Dr Jose Corona
Performing Provider: Dr Valeria Saunders
Reason for Consultation: abnormal CBC
Impression
Impression
Leukopenia with lymphopenia and monocytosis, normal absolute neutrophil count
Mild anemia with slight MCV elevation
Mild thrombocytopenia
Granulomatous dermatitis
Psoriatic arthritis
Permanent atrial fibrillation
Left total hip arthroplasty in December 2024, complicated by multiple dislocations, the need for surgical revision, postoperative bleeding, and superficial staph infection and now recurrent joint effusion
Plan
Plan
Abnormal CBC has been ongoing, is not acute. This is likely secondary to marrow suppression from autoimmunity and medications. B12 and folic acid levels are normal, flow cytometry is pending. His blanket winder helper and tobacco stripper have been
requesting bone marrow biopsy for completeness, which is not unreasonable. Will arrange to have this done as an outpatient. I will see him in the office in a few weeks to review the results.
Patient History
History of Present Illness
Guanako is seen for Hematology evaluation regarding abnormal CBC, with leukopenia and lymphopenia, thrombocytopenia, and mild anemia, with slight elevation of MCV. This has been going on for several years, and he has been seen previously in our
office by Dr. Talavera. His abnormal CBC was thought reactive to his autoimmune disease and medications.
Over the past 9 months he has been struggling with issues related to left hip arthritis. He underwent left hip arthroplasty in December 2024, which was complicated by recurrent dislocations, concerns for infection, and the need for revision
surgery. Has had a recurrent joint effusion, which has been aspirated, most recently yesterday, without obvious infection thus far.
He follows closely with dermatology and rheumatology for granulomatous dermatitis and psoriatic arthritis, currently on hydroxychloroquine. He was previously treated with Rinvoq, which was discontinued secondary to myelosuppression.
Past-Medical/Surgical History
Additional Past Medical History:
Psoriatic Arthritis
Granulomatous Dermatitis
Pancytopenia
Permanent Atrial Fibrillation
Additional Past Surgical History:
Left HUSSAIN (12/2024) - Dislocated x 5 post-op (Dr. Ni Arellano)
Left HUSSAIN Revision (04/2025) - Complicated by post-op bleeding and SUPERFICIAL Staph infection
Social History
Tobacco: Former Smoker
Alcohol: None
Drug: None
Personal:
Living: With Family
Employment: Employed
Family History
Family History: Not Pertinent
Patient Medication
�Medication �Instructions �Recorded �Confirmed �Last Taken �Type
acetaminophen 500 mg tablet 1,000 mg PO BID@1200,0000 Pain 06/08/25 08/04/25 08/04/25 00:00 History
(Tylenol Extra Strength)
aspirin 81 mg tablet,delayed 81 mg PO BID@1200,0000 Blood Clot 06/08/25 08/04/25 08/04/25 00:00 History
release Prevention/Tx
hydroxychloroquine 200 mg tablet 200 mg PO BID Autoimmune Disorder 06/08/25 08/04/25 08/04/25 00:00 History
metoprolol tartrate 25 mg tablet 25 mg PO BID@1200,0000 Blood 06/08/25 08/04/25 08/04/25 00:00 History
Pressure
Active Medications
Generic Name Dose Route Start Last Admin
Trade Name Freq PRN Reason Stop Dose Admin
Acetaminophen 650 mg 08/04/25 23:08 08/06/25 09:21
Acetaminophen 325 Mg Tablet PO 09/01/25 23:07 650 mg
Q4HPRN PRN Administration
Mild Pain / Temp > 101
Aspirin 81 mg 08/05/25 00:00 08/05/25 23:08
Aspirin 81 Mg (Enteric Coated) Tablet PO 09/02/25 00:00 81 mg
BID@1200,0000 BRITTNEY Administration
Metoprolol Tartrate 25 mg 08/05/25 00:00 08/05/25 23:09
Metoprolol 25 Mg Regular Release Tablet PO 09/02/25 00:00 25 mg
BID@1200,0000 BRITTNEY Administration
Metoprolol Tartrate 5 mg 08/05/25 01:11 08/05/25 02:04
Metoprolol 5 Mg/5 Ml Vial IV 09/02/25 01:10 5 mg
Q4HPRN PRN Administration
HR >100
Morphine Sulfate 2 mg 08/04/25 23:33 08/05/25 00:05
Morphine 2 Mg/Ml Syringe IV 08/18/25 23:32 2 mg
Q4HPRN PRN Administration
severe pain
Sodium Chloride 0 flush 08/04/25 23:00
Sodium Chloride 0.9% (Flush) Syringe IV 09/01/25 22:59
PER PROTOCOL BRITTNEY
Review of Systems
-
History Source: Patient
Constitutional: Denies Fever, Weight Gain, Weight Loss, No Appetite or Weakness
Respiratory: Denies Cough
Skin: Reports Rash
Physical Exam
-
General: Well Developed, Well Nourished, No Apparent Distress and Comfortable
HEENT: Negative Jaundice
Musculoskeletal: No Clubbing, No Cyanosis and No Edema
Extremities: No C/C/E
Neurology: Non Focal, No Lateralizing Symptoms and No Word Finding Difficulty
Skin: Warm, Dry and Rash
Psych: Calm and Intact Judgement/Insight
Labs
Lab Results
WBC 2.8 10^3/uL (4.8-10.8) L 08/06/25 08:16
RBC 3.40 10^6/uL (4.70-6.10) L 08/06/25 08:16
Hgb 11.1 g/dL (13.0-18.0) L 08/06/25 08:16
Hct 33.5 % (39.0-52.0) L 08/06/25 08:16
MCV 98.5 fL (80.0-94.0) H 08/06/25 08:16
MCH 32.6 pg (27.0-31.0) H 08/06/25 08:16
MCHC 33.1 g/dL (33.0-37.0) 08/06/25 08:16
RDW 18.3 % (11.5-14.5) H 08/06/25 08:16
Plt Count 78 10^3/uL (130-400) L 08/06/25 08:16
MPV Not Reportable 08/06/25 08:16
Abs Immat Gran (auto) 0.1 10^3/uL (0-0.05) H 08/06/25 08:16
Absolute Neuts (auto) 1.8 10^3/uL (1.4-6.5) 08/06/25 08:16
Absolute Lymphs (auto) 0.5 10^3/uL (1.2-3.4) L 08/06/25 08:16
Absolute Monos (auto) 0.4 10^3/uL (0.1-0.6) 08/06/25 08:16
Absolute Eos (auto) 0.1 10^3/uL (0-0.7) 08/06/25 08:16
Absolute Basos (auto) 0.1 10^3/uL (0-0.2) 08/06/25 08:16
Immature Gran % 2.5 % (0-0.5) H 08/06/25 08:16
Neutrophils % 63.5 % (42.2-75.2) 08/06/25 08:16
Lymphocytes % 16.6 % (20.5-51.1) L 08/06/25 08:16
Monocytes % 13.4 % (1.7-9.3) H 08/06/25 08:16
Eosinophils % 1.8 % (0-6) 08/06/25 08:16
Basophils % 2.2 % (0-2) H 08/06/25 08:16
Creatinine 0.6 mg/dL (0.7-1.3) L 08/06/25 08:16
Vital Signs
Vital Signs
Temp Pulse Resp BP Pulse Ox
99.6 F 107 20 128/82 98
08/06/25 07:55 08/06/25 07:55 08/06/25 07:55 08/06/25 07:55 08/06/25 07:55
--- NOTE | 2025-08-06 10:58 | W.PN.ID1 ---
Date of Service
Date of Service: August 06, 2025
Today's Communication
Continue off antibiotics.
Assessment / Plan
Right hip fluid collection
- Fluid analysis consistent with seroma. Infection less likely given paucity of neutrophils (even despite neutropenia)
Leukopenia; improved from admission
Psoriatic Arthritis
Granulomatous Dermatitis
Pancytopenia
Permanent Atrial Fibrillation
Recommendations:
Would continue to observe off antibiotics at this point in time.
Monitor pending cultures, although no objection to discharge from a Infectious Diseases standpoint
Patient counseled to follow-up with Orthopedic Surgeon following discharge
����������������������������������������������������������
Chief Complaint
-: Other (Left hip seroma)
Subjective / Review of Systems
Patient seen and examined. Reports some hip stiffness.
Review of Systems: No Fever and No Chills
Vital Signs / Physical Exam
Vital Signs
Vital Signs
Temp Pulse Resp BP Pulse Ox
99.6 F 107 20 128/82 98
08/06/25 07:55 08/06/25 07:55 08/06/25 07:55 08/06/25 07:55 08/06/25 07:55
Physical Exam
Constitutional: No Acute Distress, Comfortable and Non-toxic
Eyes: Sclera Anicteric
Pulmonary: Non Labored
Gastrointestinal: Non Distended
Neurological: Awake and Alert
Psychological: Calm
Objective Data
Lab Data
Lab Results
08/06/25 08:16
08/06/25 08:16
ESR 8 mm/hour (0-20) 08/04/25 23:59
Estimated Creat Clear > 125 ml/min 08/06/25 08:16
Lactic Acid Cancelled 08/05/25 11:08
Total Bilirubin 1.5 mg/dl (0.2-1.3) H 08/06/25 08:16
AST 33 U/L (17-59) 08/06/25 08:16
ALT 22 U/L (0-50) 08/06/25 08:16
Alkaline Phosphatase 69 U/L (38-126) 08/06/25 08:16
C-Reactive Protein 11.70 mg/L (0.0-10.00) H 08/04/25 23:59
Most recent labs reviewed.
Micro Results:
08/05/25 12:00 Body Fluid Culture - Preliminary
Fluid No Growth After 18-24 Hours
Gram Stain - Preliminary
08/05/25 03:22 MRSA Screen - Final
Nose No Methicillin Resistant Staphylococcus aureus isolated.
08/04/25 15:17 Blood Culture - Preliminary
Blood/Venous No Growth in 24 hours- Final report to follow
08/04/25 14:10 Blood Culture - Preliminary
Blood/Venous No Growth in 24 hours- Final report to follow
Laboratory Tests
left hip aspiration 08/05/25
12:00
Fluid WBC 336
Fluid Mononuclear Cell 87.2
Fl Polymorphonucl Cell 12.8
Imaging:
08/05/2025 Bladder ultrasound: large volume urinary bladder postvoid residual, trabeculated urinary bladder and small right-sided diverticulum noted. Small urinary bladder calculus suspected on recent CT scan is not seen. Please see full dictation
for additional detail.
08/04/2025 CXR (2 view): no acute cardiopulmonary process seen.
08/04/2025 MRI pelvis with and without contrast: bilateral hip arthroplasties with associated susceptibility artifact limits evaluation of these regions. There is a left hip complex fluid collection extending along the anterior lateral aspect of the
proximal left femur measuring approximately 6.3 x 8.0 x 9.1 cm which communicates with the hip joint. It demonstrates rim enhancement.
Care Review
Plan reviewed with: Physician (Hospitalist)
[2025-08-06] MEDS: LOPRESSOR 25 MG PO (11:05)
[2025-08-06] MEDS: ASPIR LOW (ENTERIC COATED) 81 MG PO (11:05)
--- NOTE | 2025-08-06 11:09 | CM ---
Patient seen at bedside on 2 . Patient states that is coming to transport, no needs at this time. CM will continue to follow for discharge planning needs.
Plan; home with no needs
[2025-08-06 11:11] VITALS: BP 149/95
[2025-08-08 17:31] LABS: Source Blood
== END 2025-08-06 13:09 | disposition home or self-care (01) | DRG 554 ==
LOC: 2 NORTH 20:39
PROVIDERS: Physician Assistant; Radiology Vascular & Interventional Radiology; ADMITTING PHYSICIAN Hospitalist; ATTENDING PHYSICIAN Internal Medicine; CONSULT PHYSICIAN Internal Medicine Hematology & Oncology; CONSULT PHYSICIAN Internal Medicine Infectious Disease; CONSULT PHYSICIAN Orthopaedic Surgery; EMERGENCY PHYSICIAN Emergency Medicine
PROC: 0S9B3ZZ Drainage of Left Hip Joint, Percutaneous Approach (ICD-10-PCS; 2025-08-05)
DX: M16.12 Unilateral primary osteoarthritis, left hip (principal); L02.416 Cutaneous abscess of left lower limb; D61.818 Other pancytopenia; I48.21 Permanent atrial fibrillation; E87.20 Acidosis, unspecified; D75.89 Other specified diseases of blood and blood-forming organs; L40.50 Arthropathic psoriasis, unspecified; L30.9 Dermatitis, unspecified; N32.89 Other specified disorders of bladder; Z87.891 Personal history of nicotine dependence; Z88.1 Allergy status to other antibiotic agents; Z91.041 Radiographic dye allergy status; Z79.82 Long term (current) use of aspirin; Z79.899 Other long term (current) drug therapy; Z87.440 Personal history of urinary (tract) infections; Z87.892 Personal history of anaphylaxis; Z96.642 Presence of left artificial hip joint; D72.821 Monocytosis (symptomatic); G89.29 Other chronic pain; I10 Essential (primary) hypertension
CPT/HCPCS: 20611; 71046; 72197; 76857; 80053; 81003; 81015; 82248; 82607; 82746; 83605; 84443; 85025; 85652; 86140; 87015; 87040; 87070; 87205; 89051; 96361; 96365; 96366; 96367; 96375; 96376; 99285; A9575; G0103

== ENCOUNTER → 2025-08-22 06:49 | Outpatient (REF) | payer OTHER, SELFPAY ==
[2025-08-22] VITALS (7 sets, daily range): BP systolic 84–134; BP diastolic 70–90
[2025-08-22 07:26] LABS: Hematocrit 35.0 % (39.0-52.0); Hemoglobin 11.3 g/dL (13.0-18.0); Mean Corp Hgb Conc. 32.3 g/dL (33.0-37.0); Mean Corpuscular Volume 102.3 fL (80.0-94.0); Nucleated Red Blood Cells % 0 % (-); Platelet Count 74 10^3/uL (130-400); Red Cell Dist. Width 18.5 % (11.5-14.5)
[2025-08-22 07:42] LABS: INR 1.09; PT 14.6 Sec (11.4-14.6)
== END ==
LOC: RADI 06:49
PROVIDERS: ATTENDING PHYSICIAN Internal Medicine Hematology & Oncology; FAMILY PHYSICIAN Nurse Practitioner Family
DX: D61.818 Other pancytopenia (principal)
CPT/HCPCS: 36415; 38222; 77012; 85025; 85610; 88305; 88311; 88312; 88313

== ENCOUNTER → 2025-09-01 13:49 | Outpatient (REF) | payer OTHER, SELFPAY | LOC: HWRAD 13:49 | PROVIDERS: ATTENDING PHYSICIAN Nurse Practitioner Family | DX: M25.552 Pain in left hip (principal) | CPT/HCPCS: 73502 ==

== ENCOUNTER → 2025-09-12 07:31 | Outpatient (REF) | payer OTHER, SELFPAY ==
[2025-09-12] VITALS (8 sets, daily range): BP systolic 102–138; BP diastolic 79–90
[2025-09-12] MEDS: SYRINGE NON-PUMP 50 ML IRRIG (09:05)
[2025-09-12] MEDS: SYRINGE NON-PUMP 50 MG IRRIG (09:05)
--- NOTE | 2025-09-12 11:42 | PTCARENOTE ---
[facility] note: patient was here for left hip aspiration and sclerotherapy. Allergies to sedation medications. Patient had morphine IV before for other procedure and tolerated well. Morphine offered thru out the procedure today and after words as well
but patient continues refuse. discharged home. c/on tenderness at aspiration site.
== END ==
LOC: RADI 07:31
PROVIDERS: ATTENDING PHYSICIAN Nurse Practitioner Family
DX: M25.552 Pain in left hip (principal); Z96.642 Presence of left artificial hip joint
CPT/HCPCS: 20610; 49185; 76942; C1729; C1769

== ENCOUNTER → 2025-10-26 12:30 | Outpatient (REF) | payer OTHER, SELFPAY ==
[2025-10-26 12:50] VITALS: BP 126/73; BP_SYST 82
[2025-10-26 13:51] VITALS: BP 115/76
== END ==
LOC: RADI 12:30
PROVIDERS: ATTENDING PHYSICIAN Nurse Practitioner Family
DX: M25.552 Pain in left hip (principal); M25.852 Other specified joint disorders, left hip; Z96.642 Presence of left artificial hip joint
CPT/HCPCS: 10030; 20206; 76942; 87015; 87070; 87205; C1729; C1769

== ENCOUNTER → 2025-11-06 12:57 | Outpatient (REF) | payer OTHER, SELFPAY ==
[2025-11-06 13:25] VITALS: BP 126/82; BP_SYST 96
[2025-11-06 14:00] VITALS: BP 129/71
== END ==
LOC: RADI 12:57
PROVIDERS: ATTENDING PHYSICIAN Nurse Practitioner Family
DX: Z46.82 Encounter for fitting and adjustment of non-vascular catheter (principal); L02.416 Cutaneous abscess of left lower limb
CPT/HCPCS: 49423; 75984; C1729; C1769

== ENCOUNTER → 2025-11-14 11:06 | Outpatient (REF) | payer OTHER, SELFPAY | LOC: HWRAD 11:06 | PROVIDERS: ATTENDING PHYSICIAN Physician Assistant; FAMILY PHYSICIAN Nurse Practitioner Family | DX: M25.552 Pain in left hip (principal) | CPT/HCPCS: 73502 ==

== ENCOUNTER → 2025-11-15 12:09 | Outpatient (REF) | payer OTHER, SELFPAY ==
[2025-11-15 12:34] VITALS: BP 137/85; BP_SYST 107
== END ==
LOC: RADI 12:09
PROVIDERS: ATTENDING PHYSICIAN Radiology Diagnostic Radiology; FAMILY PHYSICIAN Nurse Practitioner Family
DX: Z46.82 Encounter for fitting and adjustment of non-vascular catheter (principal)
CPT/HCPCS: 49423; 75984; C1729; C1769